=== PATIENT | male | born 1955 | race Two or more races ===

== ENCOUNTER 2016-07-06 17:12 | Inpatient (IN) | payer MEDICARE ==
--- NOTE | 2016-07-06 17:45 | ED Physician Chart ---
Chief Complaint/HPI - Patient Information Date Seen:: 07/06/16 Time Seen:: 17:15 Chief Complaint:: bilat. lower extremity edema and swelling, suspect cellulitis History of Present Illness:: Pt. has apparently had bilat lower extremity edema for some months. , pt. was started on Cephalexin for cellulitis of edematous feet. Dr. Warner/ Darius sent pt. here, apparently for admit. Allergies:: Allergies Allergy/AdvReac Type Severity Reaction Status Date / Time No Known Allergies Allergy Verified 03/27/16 23:40 Vitals:: 124.64, 86, 97%, 17, 98.5 Review of Systems - Review of Systems General/Constitutional: No fever, No weight loss Skin: Skin lesions Head: No headache ENT: No earache, No sore throat Neck: No neck pain Cardio Vascular: No chest pain, No palpitations, No orthopnea Pulmonary: No SOB, No cough GI: No nausea, No vomiting, No diarrhea G/U: No dysuria Psychiatric: Prior psych history Hematopoietic: No bruising Allergic/Immuno: No urticaria Neurological: No syncope, No focal symptoms Past Medical History - Past Medical History Past Medical History: HTN, DM, CHF, Other (Psych, ? bipolar) Family History: Diabetes Melitus, HTN Medication: Reviewed (Lisinopril, lasix, oxybutynin, dyazide, venlafaxine, famotidine, gabapentin, metformin, MOM, insulin, cephalexin, Ibuprofin, Ibuprofen, Bisacodyl ) Family Medical History - Family Member Mother History Unknown: Yes Ethnicity: Living Status: Hx Family Cancer: No Hx Family Coronary Artery Disease: No Hx Family Congestive Heart Failure: No Hx Family Hypertension: Yes Hx Family Stroke: No Hx Family Diabetes: Yes Hx Family Seizures: No Hx Family Dementia: No Hx Family AIDS: No Hx Family HIV: No Hx Family COPD: No Hx Family Hepatitis: No Hx Family Psychiatric Problems: No Hx Family Tuberculosis: No not known History Unknown: Yes Physical Exam - Physical Examination General/Constitutional: Awake, Well-developed, well-nourished, Alert, No distress, GCS 15, Non-toxic appearing Head: Atraumatic Eyes: Lids, conjuctiva normal, PERRL, EOMI Skin: Nl inspection ENMT: External ears, nose nl Neck: Nontender, Full ROM w/o pain Respiratory: Nl effort/Exclusion, Clear to Auscultation Cardio Vascular: RRR, No murmur, gallop, rubs GI: No tenderness/rebounding/guarding Other Extremities comments:: Bipedal edema 4+. Pt. has swelling and weeping between L toes 1 & 2 and on dorsum of foot over metatarsal head. Similar distribution of weeping on R. Pt. c/o "itching" on L and "burining" on R. No open diabetic ulcer visualized. Neuro/Psych: Alert/oriented, Normal motor strength Labs/Radiology/EKG Results - Lab Results Results: EKG: NSR 85 with nl. axis. No acute change. Trop elevated to 0.23 CPK is 334 and MB is 12.0 BUN/creat = 67/2.7 Na = 128. PT is 9.2 (low) and PTT 24.7 (low) WBC = 9.0, H/H = 10.4/30.0 ED Septic Shock - . Is Septic Shock (SBP<90, OR Lactate>4 mmol\\L) present?: No Reassessment (Disposition) - Reassessment Reassessment Condition:: Unchanged - Diagnosis Diagnosis:: Dx: 1. Chronic bipedal edema with diabetic foot infection 2. elevated troponin 3. Hyponatremia 4. Renal Insufficiency - Patient Disposition Discharge/Transfer:: Acute Care w/in this hosp Accepting Physician:: Dr. Richardson for Dr. Mccoy Time Called:: 1914 Time Responded:: 19:43 Discussion with Medical Provider:: Discussed with Dr. Mccoy. He is aware of card. markers, BUN/creat. and Na. He is giving orders. Admitted to:: Med/Surg Condition at Disposition:: Stable ED Discharge Plan - Patient Disposition Admit/Discharge/Transfer: Acute Care w/in this hosp Condition at Disposition: Stable
[2016-07-06 18:14] LABS: % BASOPHILS 0.4 % (0.0-2.0); % EOSINOPHILS 2.9 % (0.0-5.0); % LYMPHOCYTES 17.8 % (20.0-50.0); % MONOCYTES 9.1 % (2.0-10.0); % NEUTROPHILS 69.8 % (40.0-80.0); HEMOGLOBIN 10.4 gm/dL (13.2-17.3); MEAN CELL VOLUME 91.3 fl (80-99); MEAN CORPUSCULAR HEMOGLOBIN 31.5 pg (26.0-30.0); MEAN CORPUSCULAR HGB CONC 34.5 pg (28.0-36.0); MEAN PLATELET VOLUME 7.4 fl; NEUTROPHILE ABSOLUTE 6.3 Th/cmm (1.8-8.0); PLATELET COUNT 263 Th/cmm (150-400); RED BLOOD COUNT 3.28 Mil/cmm (4.30-5.70); RED CELL DISTRIBUTION WIDTH 13.3 % (11.5-20.0)
[2016-07-06 18:34] LABS: ALB/GLOB RATIO 0.9 (1.0-1.8); ALKALINE PHOSPHATASE 76 U/L (34-104); ANION GAP 13.8 (7.0-16.0); BILIRUBIN,TOTAL 0.3 mg/dL (0.3-1.0); BUN - UREA NITROGEN 67 mg/dL (7-25); BUN/CREATININE RATIO 24.8; CALCIUM SERUM 9.8 mg/dL (8.6-10.3); CHLORIDE 95 mEq/L (98-107); CREATININE - SERUM 2.7 mg/dL (0.7-1.3); GLUCOSE 96 mg/dL (70-105); INR 0.93 (0.5-1.4); POTASSIUM SERUM 4.8 mEq/L (3.5-5.1); PROTHROMBIN TIME (TEST) 9.2 SECONDS (9.5-11.5); SGOT 28 U/L (13-39); SGPT/ALT 23 U/L (7-52); SODIUM SERUM 128 mEq/L (136-145)
[2016-07-06 18:49] LABS: BNP 70.5 pg/mL (5.0-100.0)
[2016-07-06] MEDS ORDERED: Sodium Chloride 0.9% 500 ML IV ONE (19:42)
[2016-07-06] MEDS ORDERED: Sodium Chloride 0.9% 1,000 ML IV ONE (19:43)
[2016-07-06] MEDS ORDERED: Magnesium Hydroxide (MOM) 30 mL UDC PO PRN (20:00)
[2016-07-06] MEDS ORDERED: Maalox 30 mL Cup PO PRN (20:00)
[2016-07-06 21:12] LABS: URINE BILIRUBIN NEGATIVE (NEGATIVE); URINE BLOOD TRACE (NEGATIVE); URINE COLOR YELLOW; URINE GLUCOSE (UA) NEGATIVE (NEGATIVE); URINE KETONE NEGATIVE (NEGATIVE); URINE PH 5.5; URINE PROTEIN NEGATIVE (NEGATIVE); URINE UROBILINOGEN 0.2 E.U./dL (0.2 - 1.0)
[2016-07-06 21:13] LABS: URINE BACTERIA NONE SEEN /hpf (NONE SEEN); URINE EPITHELIAL CELLS NONE SEEN /lpf (FEW); URINE RBC 0-2 /hpf (0-5); URINE WBC NONE SEEN /hpf (0-5)
[2016-07-06 23:01] VITALS: BP 139/73
[2016-07-07] MEDS ORDERED: Piperacillin Sodium/Tazobact 2.25 gm Vial IV ONE (00:33)
[2016-07-07 07:16] LABS: % BASOPHILS 0.1 % (0.0-2.0); % EOSINOPHILS 3.7 % (0.0-5.0); % LYMPHOCYTES 23.5 % (20.0-50.0); % MONOCYTES 8.9 % (2.0-10.0); % NEUTROPHILS 63.8 % (40.0-80.0); HEMATOCRIT 26.9 % (39.0-49.0); HEMOGLOBIN 9.4 gm/dL (13.2-17.3); MEAN CELL VOLUME 89.9 fl (80-99); MEAN CORPUSCULAR HEMOGLOBIN 31.4 pg (26.0-30.0); MEAN CORPUSCULAR HGB CONC 34.9 pg (28.0-36.0); MEAN PLATELET VOLUME 7.8 fl; NEUTROPHILE ABSOLUTE 4.5 Th/cmm (1.8-8.0); PLATELET COUNT 264 Th/cmm (150-400); RED BLOOD COUNT 2.99 Mil/cmm (4.30-5.70); RED CELL DISTRIBUTION WIDTH 13.2 % (11.5-20.0)
[2016-07-07 07:29] LABS: WHITE BLOOD COUNT 7.1 Th/cmm (4.8-10.8)
[2016-07-07 07:43] LABS: ALB/GLOB RATIO 0.8 (1.0-1.8); ANION GAP 10.5 (7.0-16.0); BILIRUBIN,TOTAL 0.4 mg/dL (0.3-1.0); BUN/CREATININE RATIO 28.2; CALCIUM SERUM 9.1 mg/dL (8.6-10.3); CARBON DIOXIDE 25.3 mEq/L (21.0-31.0); CREATININE - SERUM 2.2 mg/dL (0.7-1.3); MAGNESIUM 2.5 mg/dL (1.9-2.7); PHOSPHOROUS 3.5 mg/dL (2.5-5.0); POTASSIUM SERUM 4.8 mEq/L (3.5-5.1)
[2016-07-07] MEDS: Oxybutynin Chloride 5 mg ER Tab PO SCH (08:57)
[2016-07-07] MEDS ORDERED: VENLAFAXINE HCL 37.5 MG PO SCH (09:00)
--- NOTE | 2016-07-07 09:58 | Diagnostic Imaging Report ---
Portable chest x-ray History: Cough Allowing for portable technique the heart size is normal. No focal pulmonary parenchymal processes. No hilar or mediastinal abnormalities. Impression: No acute abnormalities.
[2016-07-07] MEDS ORDERED: Morphine Sulfate 4 mg/mL 1mL Syr IVP PRN (10:01)
--- NOTE | 2016-07-07 12:32 | History & Physical ---
CHIEF COMPLAINT: The patient came in because of worsening erythema of his legs. HISTORY OF PRESENT ILLNESS: This is a 61-year-old male with past medical history of bilateral lymphedema who came in because of worsening erythema of bilateral lower extremities. The patient has a history of chronic lymphedema and recurring cellulitis. He had been treated in the past with appropriate antibiotics. A few hours prior to admission, staff noted worsening erythema of his lower extremities. He also experienced some discomfort. A few hours prior to admission, his erythema had deteriorated. He was then brought to the Emergency Room. Her white count was 9 with a temperature of 97.2 degrees. He was initiated on Zosyn after cultures were obtained. He had no fever, no chills. PAST MEDICAL HISTORY: 1. Chronic lymphedema. 2. Type 2 diabetes mellitus. 3. Essential hypertension. 4. Depression. 5. Chronic pain syndrome. 6. Diabetic neuropathy. 7. Recurrent lower extremity cellulitis. 8. Chronic kidney disease. PAST SURGICAL HISTORY: Status post implantation of morphine pump in right lower quadrant. CURRENT MEDICATIONS: He is currently on acetaminophen, bisacodyl, famotidine, Neurontin, detemir, lisinopril, Ativan, oxybutynin, Zosyn, temazepam, vanco. ALLERGIES: No known drug allergies. SOCIAL HISTORY: No history of alcohol or tobacco use. He currently resides at [facility]. FAMILY HISTORY: Noncontributory to present illness. REVIEW OF SYSTEMS: CONSTITUTIONAL: Appetite had been fair, no fever, no chills, minimal weakness. HEENT: No headaches, no dizziness. Wears glasses due to poor vision. His acuity has ____ within acceptable limits. CARDIORESPIRATORY: He has a history of hypertension. At the present time, no chest pain, palpitations, diaphoresis, cough or shortness of breath. GASTROINTESTINAL: No nausea and vomiting, abdominal pain or cramping, hematemesis, melena, hematochezia, no diarrhea. ENDOCRINE: He has a history of morbid obesity, diabetes, no thyroid abnormalities. MUSCULOSKELETAL: Multiple joint arthralgias. GENITOURINARY: History of chronic kidney disease. No dysuria or hematuria. HEMATOLOGIC: History of anemia of chronic kidney disease. NEUROPSYCH: No syncopal episode nor seizure activity. He has diabetic neuropathy and chronic pain syndrome. PHYSICAL EXAMINATION: GENERAL: The patient is obese, mild distress due to discomfort of bilateral lower extremities. VITAL SIGNS: His temperature is 98.5 degrees, pulse 81, blood pressure 96/60. SKIN: Poor turgor, warm. No rash. No jaundice appreciated. HEENT: Head normocephalic, atraumatic. Eyes: Extraocular muscles intact. Pupils equal, round, reactive to light and accommodates. Anicteric sclerae. Pale conjunctivae. Nose, midline nasal septum. Mouth: Dry mucosa with adequate dentition. NECK: Supple, no adenopathy, no JVD, no thyromegaly. CHEST AND CARDIOVASCULAR: S1, S2. Distant heart sounds. No rub, murmur nor gallop appreciated. Point of maximal impulse is unable to assess due to size. LUNGS: Equal expansion. No use of accessory muscles. No supraclavicular retractions, decreased breath sounds, clear to auscultation without any wheeze. ABDOMEN: Obese, soft, positive for bowel sounds. No bruits either diastolic or systolic. RECTAL: Lax sphincter tone. GENITOURINARY: Normal appearing male genitalia. MUSCULOSKELETAL: No effusion was present in his joints with limited range of motion. EXTREMITIES: He has ____ +3 bipedal nonpitting edema, with the blisters, possibly nodules on his bilateral lower extremities, extensive erythema superior to bilateral knees, extending distally to both feet. Bilateral lower extremities were warm to touch and tenderness on the palpation. NEUROLOGIC: The patient is awake, verbal, motor is 5/5. Cranial nerves 2-12 intact. Sensory intact. LABORATORY DATA: Revealed sodium 131, potassium 4.8, chloride 100, bicarb 22, BUN 62, creatinine 2.2, glucose is 122. White count 7.1, hemoglobin 9.4, hematocrit 26.1, polys 63.8%, platelets 264, BNP is 70, CK-MB is 12. Troponin 0.23, albumin 3.6, calcium ____. IMPRESSION: 1. Recurrent bilateral lower extremity cellulitis. 2. Chronic lymphedema. 3. Type 2 diabetes mellitus. 4. Essential hypertension. 5. Depression. 6. Chronic pain syndrome, status post morphine pump. 7. Diabetic neuropathy. 8. Acute kidney injury on chronic kidney disease, stage III. 9. Elevated troponin secondary to kidney failure, but also consider cardiac with elevated CKMB. 10. Anemia of chronic kidney disease. PLAN: 1. Blood culture x 2. 2. Continue on Zosyn ____ and vancomycin. 3. Hold diuretics for now. 4. Discontinue metformin, add glipizide. 5. Continue analgesics. 6. Cardiology consult for possible NSTEMI. 7. Start the patient on Epogen. JOB# [id number]
[2016-07-07] MEDS: INSULIN HUMAN REGULAR 100 UNITS/ML UNIT SUBQ SCH ×3 (12:37→22:16)
[2016-07-07] MEDS: Venlafaxine HCl ER 37.5 mg Tab PO SCH (15:08)
[2016-07-07] MEDS: Insulin Detemir 100 units/mL 10mL Vial SUBQ SCH (16:54)
[2016-07-08 07:30] LABS: ANION GAP 11.1 (7.0-16.0); BUN/CREATININE RATIO 31.3; CALCIUM SERUM 8.9 mg/dL (8.6-10.3); CARBON DIOXIDE 24.9 mEq/L (21.0-31.0); CREATININE - SERUM 1.6 mg/dL (0.7-1.3)
[2016-07-08] MEDS: Venlafaxine HCl ER 37.5 mg Tab PO SCH (08:36)
[2016-07-08] MEDS: INSULIN HUMAN REGULAR 100 UNITS/ML UNIT SUBQ SCH ×3 (08:37→17:06)
[2016-07-08] MEDS: Oxybutynin Chloride 5 mg ER Tab PO SCH (08:38)
[2016-07-08] MEDS: Insulin Detemir 100 units/mL 10mL Vial SUBQ SCH (17:06)
[2016-07-09] MEDS: INSULIN HUMAN REGULAR 100 UNITS/ML UNIT SUBQ SCH ×3 (01:58→21:57)
--- NOTE | 2016-07-09 02:16 | Consultation ---
The patient of Dr. Hernandez. HISTORY AND PHYSICAL: This is a 61-year-old male patient who has chronic bilateral lymphedema with cellulitis. The patient came to the Emergency Room because of increasing redness. During the hospital stay, the patient was found to have slightly elevated troponin level and hence cardiology consult was requested. PAST MEDICAL HISTORY: Bilateral cellulitis, bilateral lymphedema, diabetes mellitus type 2, diabetic neuropathy, diabetic CKD stage 3, hypertension, iron-deficiency anemia, narcotic dependence with morphine pump and major depression. FAMILY HISTORY: Unremarkable. SOCIAL HISTORY: No history of smoking, alcohol abuse. ALLERGIES: No known allergies. PHYSICAL EXAMINATION: VITAL SIGNS: Blood pressure 150/80, pulse 70 and respirations 20. HEAD: Normocephalic. No lumps or bumps. EYES: Pupils equal, reactive to light. Fundi show AV nicking, sclerae white, conjunctivae pink. NECK: Carotid 2+. Normal upstroke. JVD flat. Thyroid not palpable. Lymph nodes not palpable. CHEST: Shows increased AP diameter. No kyphosis or scoliosis. LUNGS: Bilateral ____ breath sounds. HEART: PMI fifth intercostal space with [id number] line. S1 and S2. No S3 or S4. Systolic murmur, grade 2/6, lower left sternal border ____ radiation. ABDOMEN: Soft. Liver and spleen not palpable. No organomegaly. Bowel sounds are active. NEUROLOGIC: Peripheral neuropathy. EXTREMITIES: Peripheral pulses difficult to palpate, bilateral lymphedema with cellulitis. CLINICAL IMPRESSION: 1. Troponin level slightly elevated secondary to CKD stage III, unlikely coronary artery disease. 2. Bilateral leg cellulitis, bilateral lymphedema, diabetes mellitus type 2, diabetic peripheral neuropathy, diabetic CKD stage 3, hypertension, iron-deficiency anemia secondary to CKD stage III, narcotic dependence with morphine pump and major depression. PLAN: To continue present care, IV antibiotics. Monitor the patient for any arrhythmias. JOB# [id number]
[2016-07-09 07:47] LABS: BUN - UREA NITROGEN 31 mg/dL (7-25); BUN/CREATININE RATIO 22.1; CALCIUM SERUM 8.8 mg/dL (8.6-10.3); CARBON DIOXIDE 26.8 mEq/L (21.0-31.0); CHLORIDE 104 mEq/L (98-107); CREATININE - SERUM 1.4 mg/dL (0.7-1.3); GLUCOSE 119 mg/dL (70-105); POTASSIUM SERUM 3.8 mEq/L (3.5-5.1); SODIUM SERUM 136 mEq/L (136-145)
[2016-07-09] MEDS ORDERED: Epoetin Alfa 20000 Units/mL Vial SUBQ SCH (10:25)
--- NOTE | 2016-07-09 23:40 | Admit Criteria Form ---
Admit Criteria Forms - Admit Criteria Diagnosis: CELLULITIS Clinical Indications for Admission to Inpatient Care (Place 'X' for any and all applicable criteria): Admission is indicated for ANY ONE of the following(1)(2)(3)(4)(5): [ ]I. Limb-threatening infection [ ]II. High-risk comorbid condition as indicated by ANY ONE of the following: [ ]a) Uncontrolled diabetes (eg, HbA1c greater than 10% (0.1)) [ ]b) Cirrhosis [ ]c) Neutropenia [ ]d) Asplenia [ ]e) Immunosuppression [ ]f) Symptomatic heart failure [ ]III. Failure of outpatient therapy as indicated by ALL of the following: [ ]a) Progression or no improvement after adequate trial (minimum of 48 hours, with longer period for stable lower extremity infection) [ ]b) Adequate antibiotic regimen as indicated by use of ANY ONE of the following: [ ]i) First-generation cephalosporin (e.g., cephalexin) [ ]ii) Antistaphylococcal penicillin (e.g., dicloxacillin) [ ]iii) Penicillin-allergic patient regimen (clindamycin, extended-spectrum fluoroquinolone, or doxycycline) [ ]iv) Resistant organism (eg, methicillin-resistant Staphylococcus aureus) regimen (6) [ ]c) Outpatient intravenous therapy regimen is not appropriate due to ANY ONE of the following. (7)(8)(9)(10): [ ]i) It was tried and was not successful (eg, progression of infection). [ ]ii) It is not available or cannot be arranged in a clinically appropriate time frame (e.g., the next day). [ ]iii) Clinical presentation (eg, acuity of infection, rapidity of progression, confirmed or suspected bacteremia) is judged to require ALL of the following: [ ]1) Immediate initiation of intravenous therapy ( eg, cannot wait for next day) [ ]2) Intensity of patient monitoring and observation (eg, vital sign measurement, checks for infection progression) that cannot be provided at other than inpatient level of care [ ]IV. Mental status changes [ ]V. Bacteremia [ ]. Hemodynamic instability [ ]VII. Suspected necrotizing soft tissue infection (e.g., gas in tissue)(11)( 12) [ ]VIII. Orbital infection (13)(14) [ ]IX. Associated surgical procedure (e.g., abscess drainage, debridement) not amenable to outpatient, emergency department, or observation care [ ]X. Cutaneous gangrene [ ]XI. High fever (temperature greater than 39.5 degrees C (103.1 degrees F) (oral)) not responsive to outpatient, emergency department, or observation care therapy [X ]XIII. Inpatient admission required rather than observation care (Also use Cellulitis: Observation Care as appropriate) because of ANY ONE of the following : [ ]a) Periorbital or perineal infection that is severe or worsening [ ]b) Severe pain requiring acute inpatient management [ ]c) IV fluid to replace significant ongoing (e.g., for over 24 hours) losses (greater than 3L/m2 per day) [ ]d) Compartment syndrome monitoring (17) [ ]e) Strict or protective (eg, laminar flow) isolation [ ]f) Urgent debridement or skin grafting [ ]g) Bone or joint debridement [ ]h) Immediate inpatient surgery [ X]i) Other condition, treatment or monitoring requiring inpatient admission Extended stay beyond goal length of stay may be needed for (1)(18): [ ]a) Necrotizing soft tissue infection or fasciitis [ ]b) Gram-negative infection [ ]c) Methicillin-resistant Staphylococcal aureus (MRSA) infection [ ]d) Peripheral venous insufficiency with cellulitis [ ]e) Extensive edema [ ]f) Sepsis or continued Hemodynamic instability [ ]g) Continued high fever or mental status change [ ]h) Bacteremia [ ]i) Active serious comorbid conditions ( eg, heart failure, renal insufficiency) The original [facility] [employer] content created by [facility] [email or web address] has been revised. The portions of the content which have been revised are identified through the use of italic text or in bold, and [facility] has neither reviewed nor approved the modified material. All other unmodified content is copyright [facility] Please see references footnoted in the original [email or web address] edition 2016 Admit Criteria Met?: Yes
[2016-07-10 05:34] LABS: % BASOPHILS 0.8 % (0.0-2.0); % EOSINOPHILS 7.9 % (0.0-5.0); % MONOCYTES 9.3 % (2.0-10.0); HEMATOCRIT 26.2 % (39.0-49.0); HEMOGLOBIN 9.1 gm/dL (13.2-17.3); MEAN CELL VOLUME 89.4 fl (80-99); MEAN CORPUSCULAR HEMOGLOBIN 31.2 pg (26.0-30.0); MEAN CORPUSCULAR HGB CONC 34.9 pg (28.0-36.0); MEAN PLATELET VOLUME 7.2 fl; NEUTROPHILE ABSOLUTE 2.1 Th/cmm (1.8-8.0); PLATELET COUNT 265 Th/cmm (150-400); RED BLOOD COUNT 2.93 Mil/cmm (4.30-5.70); RED CELL DISTRIBUTION WIDTH 13.1 % (11.5-20.0)
[2016-07-10 05:37] LABS: WHITE BLOOD COUNT 5.1 Th/cmm (4.8-10.8)
[2016-07-10 05:50] LABS: ALB/GLOB RATIO 0.9 (1.0-1.8); ALKALINE PHOSPHATASE 92 U/L (34-104); ANION GAP 5.4 (7.0-16.0); BILIRUBIN,TOTAL 0.2 mg/dL (0.3-1.0); BUN - UREA NITROGEN 20 mg/dL (7-25); BUN/CREATININE RATIO 18.2; CALCIUM SERUM 8.6 mg/dL (8.6-10.3); CARBON DIOXIDE 25.4 mEq/L (21.0-31.0); CHLORIDE 109 mEq/L (98-107); CREATININE - SERUM 1.1 mg/dL (0.7-1.3); GLUCOSE 113 mg/dL (70-105); POTASSIUM SERUM 3.8 mEq/L (3.5-5.1); SGOT 40 U/L (13-39); SGPT/ALT 29 U/L (7-52); SODIUM SERUM 136 mEq/L (136-145)
[2016-07-10] MEDS: INSULIN HUMAN REGULAR 100 UNITS/ML UNIT SUBQ SCH ×3 (06:34→16:29)
[2016-07-10] MEDS: Venlafaxine HCl ER 37.5 mg Tab PO SCH (08:51)
[2016-07-10] MEDS: Oxybutynin Chloride 5 mg ER Tab PO SCH (08:51)
[2016-07-10] MEDS: Insulin Detemir 100 units/mL 10mL Vial SUBQ SCH (16:39)
[2016-07-11 07:45] LABS: % BASOPHILS 0.4 % (0.0-2.0); % EOSINOPHILS 7.6 % (0.0-5.0); % LYMPHOCYTES 31.9 % (20.0-50.0); % MONOCYTES 11.1 % (2.0-10.0); HEMATOCRIT 25.1 % (39.0-49.0); HEMOGLOBIN 8.6 gm/dL (13.2-17.3); MEAN CELL VOLUME 90.6 fl (80-99); MEAN CORPUSCULAR HEMOGLOBIN 31.1 pg (26.0-30.0); MEAN CORPUSCULAR HGB CONC 34.3 pg (28.0-36.0); MEAN PLATELET VOLUME 7.6 fl; NEUTROPHILE ABSOLUTE 2.9 Th/cmm (1.8-8.0); PLATELET COUNT 284 Th/cmm (150-400); RED BLOOD COUNT 2.77 Mil/cmm (4.30-5.70); RED CELL DISTRIBUTION WIDTH 13.3 % (11.5-20.0)
[2016-07-11] MEDS ORDERED: Maalox 30 mL Cup PO PRN (09:56)
[2016-07-11] MEDS: Oxybutynin Chloride 5 mg ER Tab PO SCH (10:07)
[2016-07-11] MEDS: Venlafaxine HCl ER 37.5 mg Tab PO SCH (10:07)
[2016-07-11] MEDS: INSULIN HUMAN REGULAR 100 UNITS/ML UNIT SUBQ SCH (11:31)
[2016-07-11] MEDS ORDERED: INSULIN ASPART SLIDING SCALE 100 UNITS/ML UNIT SUBQ SCH (16:30)
--- NOTE | 2016-07-18 10:24 | Discharge Summary ---
ADMITTING DIAGNOSES: Recurrent bilateral lower extremity cellulitis, acute on chronic lymphedema, acute on chronic kidney insufficiency, and slight elevation of troponins. SECONDARY DIAGNOSES: Chronic lymphedema, chronic lower extremity dermatitis, chronic lower extremity edema, type 2 diabetes, essential hypertension, chronic pain syndrome, status post morphine pump placement, history of depression, diabetic neuropathy, and anemia of chronic disease. CONSULTANTS: Dr. Niko Domingo, Cardiology. DISCHARGE DIAGNOSES: Recurrent bilateral lower extremity cellulitis, acute on chronic lymphedema, acute on chronic kidney insufficiency, and slight elevation of troponins. PROCEDURES: There were no major procedures done on this admission. DISCHARGE MEDICATIONS: Please refer to AUG. IV antibiotics included Zosyn and vancomycin for 10 more days. BRIEF HOSPITAL COURSE: This is a 61-year-old gentleman, resident of [facility] with multiple medical problems including chronic pain syndrome secondary to spinal cord injury, essential hypertension, diabetic neuropathy, type 2 diabetes, history of chronic lymphedema, history of chronic venous stasis and recurrent lower extremity cellulitis, who presented to the ER with erythema and worsening swelling for the last few days. On admission, his sodium was noted to be 131, creatinine 2.2 and a BUN of 62. BNP was 70 and his troponin was slightly elevated at 0.23. He was admitted to telemetry where his troponins improved, and among other things, he was placed on IV fluids, IV antibiotics, and daily wound care. His lower extremity edema and redness also noticeable improved by hospital day #3. He also received brief sessions with PT and was kept on his home medications except Lasix given his renal insufficiency. His BUN and creatinine and his sodium level did improve and by 07/08/2016, his BUN was 15, creatinine was 1.6, and his sodium level was 136. CONDITION ON DISCHARGE: Stable. DISPOSITION: The patient was transferred to [facility] facility for further management and care as well as PT. JOB# [id number]
== END 2016-07-11 15:10 | DRG 603 ==
LOC: ER 17:12 → MSI 20:25
PROVIDERS: ADMIT Internal Medicine; ATTEND Internal Medicine
DX: L03.116 Cellulitis of left lower limb (principal); E11.22 Type 2 diabetes mellitus with diabetic chronic kidney disease; I13.0 Hypertensive heart and chronic kidney disease with heart failure and stage 1 through stage 4 chronic kidney disease, or unspecified chronic kidney disease; N17.9 Acute kidney failure, unspecified; E11.40 Type 2 diabetes mellitus with diabetic neuropathy, unspecified; N18.3 Chronic kidney disease, stage 3 (moderate); F11.20 Opioid dependence, uncomplicated; E87.1 Hypo-osmolality and hyponatremia; L03.115 Cellulitis of right lower limb; F32.9 Major depressive disorder, single episode, unspecified; G89.4 Chronic pain syndrome; D63.1 Anemia in chronic kidney disease; D50.9 Iron deficiency anemia, unspecified; Z83.3 Family history of diabetes mellitus; Z82.49 Family history of ischemic heart disease and other diseases of the circulatory system; Z79.4 Long term (current) use of insulin
CPT/HCPCS: 36415-UA; 71010-TC; 80048-TC; 80053-TC; 81001-TC; 82550-TC; 82553; 82948-90; 83036-90; 83735-TC; 83880-TC; 84100-TC; 84443-TC; 84484-TC; 85025-TC; 85610-TC; 85730-TC; 93005; 97530; J0885; J1644; J1815; J2543; J3370; J7030; X3904; Z7610

== ENCOUNTER 2016-11-29 18:16 | Emergency (ER) | payer MEDICARE, MEDICAID ==
--- NOTE | 2016-11-29 18:59 | ED Physician Chart ---
Chief Complaint/HPI - Patient Information Date Seen:: 11/29/16 Time Seen:: 18:50 Chief Complaint:: lower leg swelling History of Present Illness:: Patient said lower leg swelling for the last 3-1/2 months. Legs have also been leaking fluid. No chills or fever. Unable to walk. Has been using a wheelchair for the last 3 years. Allergies:: Allergies Allergy/AdvReac Type Severity Reaction Status Date / Time No Known Allergies Allergy Verified 11/29/16 18:31 Vitals:: Vital Signs - 8 hr 11/29/16 18:25 Temp 97.6 F HR 79 RR 16 BP 132/59 O2 Sat % 97 Historian:: Patient Review:: Nurse's Note Reviewed Review of Systems - Review of Systems General/Constitutional: No fever, No chills Skin: Skin lesions Head: No headache Eyes: No loss of vision ENT: No earache Neck: No neck pain Cardio Vascular: No chest pain Pulmonary: No SOB GI: No nausea, No vomiting, No diarrhea G/U: No dysuria Musculoskeletal: No bone or joint pain Endocrine: No polyuria Psychiatric: No prior psych history, No depression, No anxiety Hematopoietic: No bruising Allergic/Immuno: No urticaria Neurological: No syncope, No focal symptoms Past Medical History - Past Medical History Past Medical History: DM, Other (peripheral vascular disease ) Family History: Heart disease, Diabetes Melitus, HTN Social History: Smoker, No Alcohol, Other (smokes one half package of cigarettes per day) Surgical History: other (back surgery and morphine pump placed in RLQ abdominal wall) Psychiatricy History: None Medication: Reviewed Family Medical History - Family Member Mother History Unknown: Yes Ethnicity: Living Status: Hx Family Cancer: No Hx Family Coronary Artery Disease: No Hx Family Congestive Heart Failure: No Hx Family Hypertension: Yes Hx Family Stroke: No Hx Family Diabetes: Yes Hx Family Seizures: No Hx Family Dementia: No Hx Family AIDS: No Hx Family HIV: No Hx Family COPD: No Hx Family Hepatitis: No Hx Family Psychiatric Problems: No Hx Family Tuberculosis: No not known History Unknown: Yes Physical Exam - Physical Examination General/Constitutional: Well-developed, well-nourished Head: Atraumatic Eyes: Lids, conjuctiva normal, PERRL Other Skin comments:: Lower extremities are swollen with brawny discoloration and cobblestone appearance ENMT: External ears, nose nl, TM canals nl, Nasal exam nl Other ENMT comments:: Dentures Neck: No nuchal rigidity Respiratory: Nl effort/Exclusion, Clear to Auscultation, No Wheeze/Rhonchi/Rales Cardio Vascular: RRR, No murmur, gallop, rubs GI: No tenderness/rebounding/guarding, No organomegaly, No hernia, Normal BS's, Nondistended : No CVA tenderness Other Extremities comments:: See above under skin Neuro/Psych: Alert/oriented, No focal deficits Labs/Radiology/EKG Results - Lab Results Results: Laboratory Results - last 24 hr 11/29/16 11/29/16 19:06 19:06 WBC 7.1 RBC 4.10 L Hgb 11.1 L D Hct 33.1 L D MCV 80.8 MCH 26.9 MCHC Differential 33.4 RDW 22.2 H Plt Count 256 MPV 7.2 Neutrophils % 54.2 Lymphocytes % 32.3 Monocytes % 8.2 Eosinophils % 4.5 Basophils % 0.8 Sodium 131 L Potassium 5.3 H Chloride 104 Carbon Dioxide 21.3 Anion Gap 11.0 BUN 39 H Creatinine 1.5 H Est GFR ( Amer) > 60.0 Est GFR (Non-Af Amer) 50.4 BUN/Creatinine Ratio 26.0 Glucose 105 Calcium 9.9 Total Bilirubin 0.3 AST 18 ALT 12 Alkaline Phosphatase 81 Total Protein 8.2 Albumin 3.8 L Globulin 4.4 Albumin/Globulin Ratio 0.9 L Assessment - Assessment General Assessment: Talk to Dr. Mccoy. who is familiar with the patient and felt he could return to his extended care facility. ED Septic Shock - . Is Septic Shock (SBP<90, OR Lactate>4 mmol\L) present?: No - <6hrs of presentation: Vital Signs: Vital Signs - 8 hr 11/29/16 18:25 Temp 97.6 F HR 79 RR 16 BP 132/59 O2 Sat % 97 Reassessment (Disposition) - Diagnosis Diagnosis:: Stasis dermatitis; lymphedema - Aftercare/Follow up Instructions Aftercare/Follow-Up Instructions:: Refer to Discharge Instructions - Patient Disposition Discharge/Transfer:: [facility] - SNF Spoke to:: Paulo Mccoy Condition at Disposition:: Stable, Unchanged
[2016-11-29 19:15] LABS: % BASOPHILS 0.8 % (0.0-2.0); % EOSINOPHILS 4.5 % (0.0-5.0); % LYMPHOCYTES 32.3 % (20.0-50.0); % MONOCYTES 8.2 % (2.0-10.0); % NEUTROPHILS 54.2 % (40.0-80.0); MEAN CELL VOLUME 80.8 fl (80-99); MEAN CORPUSCULAR HEMOGLOBIN 26.9 pg (26.0-30.0); MEAN CORPUSCULAR HGB CONC 33.4 pg (28.0-36.0); MEAN PLATELET VOLUME 7.2 fl; NEUTROPHILE ABSOLUTE 3.8 Th/cmm (1.8-8.0); PLATELET COUNT 256 Th/cmm (150-400); RED CELL DISTRIBUTION WIDTH 22.2 % (11.5-20.0); WHITE BLOOD COUNT 7.1 Th/cmm (4.8-10.8)
[2016-11-29 19:17] LABS: HEMATOCRIT 33.1 % (39.0-49.0); HEMOGLOBIN 11.1 gm/dL (13.2-17.3)
[2016-11-29 19:31] LABS: ALB/GLOB RATIO 0.9 (1.0-1.8); ALKALINE PHOSPHATASE 81 U/L (34-104); BILIRUBIN,TOTAL 0.3 mg/dL (0.3-1.0); BUN - UREA NITROGEN 39 mg/dL (7-25); CALCIUM SERUM 9.9 mg/dL (8.6-10.3); CARBON DIOXIDE 21.3 mEq/L (21.0-31.0); CHLORIDE 104 mEq/L (98-107); CREATININE - SERUM 1.5 mg/dL (0.7-1.3); GLUCOSE 105 mg/dL (70-105); POTASSIUM SERUM 5.3 mEq/L (3.5-5.1); SGOT 18 U/L (13-39); SGPT/ALT 12 U/L (7-52); SODIUM SERUM 131 mEq/L (136-145)
== END 2016-11-29 22:05 | disposition home or self-care (01) ==
LOC: ER 18:16
DX: I87.2 Venous insufficiency (chronic) (peripheral) (principal); E11.9 Type 2 diabetes mellitus without complications; I89.0 Lymphedema, not elsewhere classified; F17.210 Nicotine dependence, cigarettes, uncomplicated
CPT/HCPCS: 36415-UA; 80053-TC; 85025-TC; Z7502

== ENCOUNTER 2017-05-26 20:41 | Emergency (ER) | payer MEDICARE, MEDICAID ==
--- NOTE | 2017-05-26 21:11 | ED Physician Chart ---
ED Chief Complaint/HPI - Patient Information Date Seen:: 05/26/17 Time Seen:: 20:42 Chief Complaint:: Aggressive behavior. History of Present Illness:: Brought in by ambulance from nursing facility because pt was noticed to exhibit aggressive behavior. Pt now appears to be calm and comfortable. Pt feels well without subjective complaint. Pt denies any bodily pain or discomfort. Allergies:: Allergies Allergy/AdvReac Type Severity Reaction Status Date / Time No Known Allergies Allergy Verified 05/26/17 21:05 Vitals:: see Nurse Note. Historian:: Patient, Medical Records Family MD/PCP:: Dr. Esparza/Dr. Yeung. LMP:: N/A Review:: Nurse's Note Reviewed, Transfer documents Reviewed ED Review of Systems - Review of Systems General/Constitutional: No fever, No weight loss, No weakness, No loss of appetite, Other (Chronic bilateral LE lymphedema.) Skin: No rash, No bruising Head: No headache, No light-headedness Eyes: No loss of vision, No pain, No diplopia ENT: No earache, No nasal drainage, No sore throat Neck: No neck pain, No swelling, No thyromegaly, No stiffness, No mass noted Cardio Vascular: No chest pain, No palpitations Pulmonary: No SOB, No cough, No wheezing GI: No nausea, No vomiting, No diarrhea, No pain G/U: No dysuria, No frequency, No hematuria Musculoskeletal: No bone or joint pain, No back pain, No muscle pain Endocrine: No polyuria, No polydipsia Psychiatric: Prior psych history, No depression, Anxiety, No suicidal ideation, No homicidal ideation, No auditory hallucination, No visual hallucination Hematopoietic: No bruising, No lymphadenopathy Allergic/Immuno: No urticaria, No angioedema Neurological: No syncope, No focal symptoms, No weakness, No paresthesia, No headache, No dizziness, No confusion ED Past Medical History - Past Medical History Past Medical History: HTN, DM, CHF, Asthma/COPD, Other (chronic anemia. Chronic pain syndrome, s/p morphine pump placement in R abdomen '04) Family History: Diabetes Melitus (parents. MGM, PGM.), HTN (mother.) Social History: Smoker (3 cigarets/day. Pt has been informed about health risks associated with chronic tobacco use and has been advised to quit. Pt has been encouraged to enroll in a smoking cessation program. Pt acknowledges understanding.), Alcohol (rare use), No Drug Use, Single, Care Facility Employment:: Retired. Surgical History: other (low back surgery '04) Psychiatricy History: Other (anxiety disorder.) Medication: Reviewed Family Medical History - Family Member Mother History Unknown: Yes Ethnicity: Living Status: Hx Family Cancer: No Hx Family Coronary Artery Disease: No Hx Family Congestive Heart Failure: No Hx Family Hypertension: Yes Hx Family Stroke: No Hx Family Diabetes: Yes Hx Family Seizures: No Hx Family Dementia: No Hx Family AIDS: No Hx Family HIV: No Hx Family COPD: No Hx Family Hepatitis: No Hx Family Psychiatric Problems: No Hx Family Tuberculosis: No not known History Unknown: Yes ED Physical Exam - Physical Examination General/Constitutional: Awake, Well-developed, well-nourished, Alert, No distress, Non-toxic appearing Other Gen/Cons comments:: Breathes comforably, speaks clearly, and interacts normally. Head: Atraumatic Eyes: Lids, conjuctiva normal, PERRL, EOMI Skin: No rash, Well hydrated, No lymphadenopathy ENMT: External ears, nose nl, Nasal exam nl, Oropharynx nl Neck: Nontender, Full ROM w/o pain, No JVD, No nuchal rigidity, No bruit, No mass, No stridor Respiratory: Nl effort/Exclusion, Clear to Auscultation, No Wheeze/Rhonchi/Rales Cardio Vascular: RRR, No murmur, gallop, rubs GI: No tenderness/rebounding/guarding, No organomegaly, No hernia, Normal BS's, Nondistended Other GI comments:: There is a palplable subcutaneous device noticed in R mid abdomen. Pt states that it is his morphine pump for morphine for chronic pain. : No CVA tenderness Other Extremities comments:: There are chronic changes noticed in both lower legs with dry scaling c/w lymphedema. No erythema, unusual warmth, or crepitus. Neuro/Psych: Alert/oriented (oriented x 3), DTR's symmetric, Normal sensory exam , Normal motor strength, Judgement/insight normal, Mood normal, Normal gait, No focal deficits ED Labs/Radiology/EKG Results - Lab Results Results: Laboratory Tests 05/26/17 05/26/1717 21:25 21:25 21:25 WBC 7.1 RBC 4.72 Hgb 14.8 D Hct 43.3 D MCV 91.8 MCH 31.3 H MCHC Differential 34.1 RDW 12.7 Plt Count 290 MPV 7.0 Neutrophils % 51.4 Lymphocytes % 39.4 Monocytes % 6.4 Eosinophils % 2.3 Basophils % 0.5 PT 9.0 L INR 0.88 PTT (Actin FS) 22.8 L Sodium 136 Potassium 4.4 Chloride 102 Carbon Dioxide 27.3 Anion Gap 11.1 BUN 14 Creatinine 0.7 Est GFR ( Amer) > 60.0 Est GFR (Non-Af Amer) > 60.0 BUN/Creatinine Ratio 20.0 Glucose 158 H Calcium 9.9 Total Bilirubin 0.3 AST 21 ALT 19 Alkaline Phosphatase 108 H Creatine Kinase 84 Troponin I Total Protein 8.0 Albumin 4.1 L Globulin 3.9 Albumin/Globulin Ratio 1.1 05/26/17 21:25 WBC RBC Hgb Hct MCV MCH MCHC Differential RDW Plt Count MPV Neutrophils % Lymphocytes % Monocytes % Eosinophils % Basophils % PT INR PTT (Actin FS) Sodium Potassium Chloride Carbon Dioxide Anion Gap BUN Creatinine Est GFR ( Amer) Est GFR (Non-Af Amer) BUN/Creatinine Ratio Glucose Calcium Total Bilirubin AST ALT Alkaline Phosphatase Creatine Kinase Troponin I 0.03 Total Protein Albumin Globulin Albumin/Globulin Ratio - EKG Interpretations EKG Time:: 21:32 Rate & Rhythm: NSR with VR 85 Comments:: No acute ischemic changes. ED Septic Shock - . Is Septic Shock (SBP<90, OR Lactate>4 mmol\L) present?: No ED Reassessment (Disposition) - Reassessment Reassessment:: 0010 Remaining lab results just became available. Lab and EKG findings have been reviewed with pt. Management plan has been discussed. Pt's attending physician is to be contacted. 0020 Case was discussed with Dr. Esparza with pertinent H & P, EKG, and lab findings reviewed. Pt is to be admitted to [facility] under his care. Addendum 0050 Pt is alert and oriented x 3. Pt has declined to be admitted to the hospital. Indications to be admitted to hospital, benefits and related risks, including risks for leaving AMA have been well explained to pt. Pt acknowledges understanding but still choses to leave AMA. Pt signed AMA form, witnessed by my nurse Darío. I have later discussed with Dr. Esparza on the phone at about 0045, who stated that pt may be transferred back to nursing facility. He will continue to manage pt there. Pt agrees with plan to be transported back to nursing facility where he will continue to receive further medical care per his attending physician Dr. Esparza. Reassessment Condition:: Improved - Diagnosis Diagnosis:: h/o aggressive behavior. Pt remains in normal mood and has not exhibited any aggressive behavior during his ER visit. Bacteriuria c/w UTI. Stable Diabetes mellitus. Stable HTN, stable. - Patient Disposition Discharge/Transfer:: [facility] SN[facility] Accepting Physician:: Dr. Danny Esparza Transport Method:: BLS Time:: 00:50 Condition at Disposition:: Stable ED Discharge Plan - Patient Disposition Admit/Discharge/Transfer: AGAINST MEDICAL ADVICE
[2017-05-26 21:32] LABS: % BASOPHILS 0.5 % (0.0-2.0); % EOSINOPHILS 2.3 % (0.0-5.0); % LYMPHOCYTES 39.4 % (20.0-50.0); % MONOCYTES 6.4 % (2.0-10.0); % NEUTROPHILS 51.4 % (40.0-80.0); MEAN CELL VOLUME 91.8 fl (80-99); MEAN CORPUSCULAR HEMOGLOBIN 31.3 pg (26.0-30.0); MEAN CORPUSCULAR HGB CONC 34.1 pg (28.0-36.0); NEUTROPHILE ABSOLUTE 3.6 Th/cmm (1.8-8.0); PLATELET COUNT 290 Th/cmm (150-400); RED BLOOD COUNT 4.72 Mil/cmm (4.30-5.70); RED CELL DISTRIBUTION WIDTH 12.7 % (11.5-20.0); WHITE BLOOD COUNT 7.1 Th/cmm (4.8-10.8)
[2017-05-26 21:33] LABS: HEMATOCRIT 43.3 % (41.0-60); HEMOGLOBIN 14.8 gm/dL (12-16)
[2017-05-26 21:51] LABS: INR 0.88 (0.5-1.4)
[2017-05-26 21:56] LABS: ALB/GLOB RATIO 1.1 (1.0-1.8); ALKALINE PHOSPHATASE 108 U/L (34-104); ANION GAP 11.1 (7.0-16.0); BILIRUBIN,TOTAL 0.3 mg/dL (0.3-1.0); BUN - UREA NITROGEN 14 mg/dL (7-25); CALCIUM SERUM 9.9 mg/dL (8.6-10.3); CARBON DIOXIDE 27.3 mEq/L (21.0-31.0); CHLORIDE 102 mEq/L (98-107); CREATININE - SERUM 0.7 mg/dL (0.7-1.3); GLUCOSE 158 mg/dL (70-105); POTASSIUM SERUM 4.4 mEq/L (3.5-5.1); SGOT 21 U/L (13-39); SGPT/ALT 19 U/L (7-52); SODIUM SERUM 136 mEq/L (136-145)
[2017-05-26 22:25] LABS: URINE BILIRUBIN NEGATIVE (NEGATIVE); URINE BLOOD NEGATIVE (NEGATIVE); URINE GLUCOSE (UA) NEGATIVE (NEGATIVE); URINE KETONE NEGATIVE (NEGATIVE); URINE PH 6.5 (4.6 - 8.0); URINE PROTEIN NEGATIVE (NEGATIVE); URINE UROBILINOGEN 0.2 E.U./dL (0.2 - 1.0)
[2017-05-26 22:36] LABS: URINE BACTERIA MODERATE /hpf (NONE SEEN); URINE COLOR YELLOW; URINE EPITHELIAL CELLS RARE /lpf (FEW); URINE RBC NONE SEEN /hpf (0-5); URINE WBC 0-2 /hpf (0-5)
[2017-05-27] MEDS ORDERED: Sulfamethoxazole/TMP 800/160mg Tab PO ONE (00:17)
[2017-05-27] MEDS ORDERED: Sulfamethoxazole/TMP 800/160mg Tab ONE (00:52)
[2017-05-27] MEDS ORDERED: cefTRIAXone 1 GM in Sodium Chloride 0.9% 50 ML IV SCH (09:00)
== END 2017-05-27 01:00 | disposition left against medical advice (07) ==
LOC: ER 20:41
DX: R46.89 Other symptoms and signs involving appearance and behavior (principal); N39.0 Urinary tract infection, site not specified; R82.71 Bacteriuria; I10 Essential (primary) hypertension; I50.9 Heart failure, unspecified; J45.909 Unspecified asthma, uncomplicated; J44.9 Chronic obstructive pulmonary disease, unspecified
CPT/HCPCS: 36415-UA; 80053-TC; 81001-TC; 82550-TC; 84443-TC; 84484-TC; 85025-TC; 85610-TC; 93005

== ENCOUNTER 2017-09-27 14:56 | Inpatient (IN) | payer MEDICARE, MEDICAID ==
--- NOTE | 2017-09-27 15:18 | ED Physician Chart ---
ED Chief Complaint/HPI - Patient Information Date Seen:: 09/27/17 Time Seen:: 15:17 Chief Complaint:: Increased agitation History of Present Illness:: 62 yo male was brought from [facility] to ER for evaluation of increased agitation. The patient had an argument with his roommate. The patient is wheelchair bound due to fracture of lumbar spine. He had history of caudal regression syndrome. He had lymphedema of bilateral lower extremities. Allergies:: Allergies Allergy/AdvReac Type Severity Reaction Status Date / Time No Known Allergies Allergy Verified 05/26/17 21:05 Vitals:: Vital Signs - 8 hr 09/27/17 15:11 Temp 98.6 F HR 89 RR 18 BP 151/86 O2 Sat % 97 ED Review of Systems - Review of Systems General/Constitutional: No fever Skin: No bruising Head: No headache Eyes: No pain ENT: No nasal drainage Neck: No neck pain Cardio Vascular: No chest pain Pulmonary: No SOB GI: No nausea, No vomiting Musculoskeletal: Back pain Psychiatric: Depression Neurological: Weakness ED Past Medical History - Past Medical History Past Medical History: HTN, DM, CHF, Other ( spinal syndrome (Caudal regression syndrome), chronic pain syndrome) Social History: Smoker, No Alcohol, No Drug Use Surgical History: other (Lumbar surgery, Intraperitoneal morphin pump placement) Psychiatricy History: Depression, Other (Anxiety) Family Medical History - Family Member Mother History Unknown: Yes Ethnicity: Living Status: Hx Family Cancer: No Hx Family Coronary Artery Disease: No Hx Family Congestive Heart Failure: No Hx Family Hypertension: Yes Hx Family Stroke: No Hx Family Diabetes: Yes Hx Family Seizures: No Hx Family Dementia: No Hx Family AIDS: No Hx Family HIV: No Hx Family COPD: No Hx Family Hepatitis: No Hx Family Psychiatric Problems: No Hx Family Tuberculosis: No not known History Unknown: Yes ED Physical Exam - Physical Examination General/Constitutional: Awake, Alert Head: Atraumatic Eyes: PERRL Skin: No ecchymosis ENMT: Nasal exam nl Neck: No nuchal rigidity Respiratory: Clear to Auscultation Cardio Vascular: RRR, No murmur, gallop, rubs, NL S1 S2 GI: No tenderness/rebounding/guarding Other Extremities comments:: Deformity of bilateral lower extremities Other Neuro/Psych comments:: BLE 3/5, BUE 5/5, sensation intact ED Assessment - Assessment General Assessment: Agitation Hypertension DM II Lymphedema of bilateral lower extremities Depression Wheelchair bound Assessment/Comments:: CBC, CMP, UA CXR, EKG Patient is cleared for gerchandlerych admit ED Septic Shock - . Is Septic Shock (SBP<90, OR Lactate>4 mmol\L) present?: No - <6hrs of presentation: Vital Signs: Vital Signs - 8 hr 09/27/17 15:11 Temp 98.6 F HR 89 RR 18 BP 151/86 O2 Sat % 97 ED Reassessment (Disposition) - Reassessment Reassessment Condition:: Unchanged - Patient Disposition Discharge/Transfer:: Ander w/in this hosp Admitting Medical Physician:: Danny Esparza Admitting Psych Physician:: Gary Dutton
[2017-09-27 15:45] LABS: % BASOPHILS 0.8 % (0.0-2.0); % LYMPHOCYTES 34.6 % (20.0-50.0); % MONOCYTES 5.4 % (2.0-10.0); % NEUTROPHILS 56.2 % (40.0-80.0); BASOPHILE ABSOLUTE 0.1 Th/cumm (0-0.2); EOSINOPHILE ABSOLUTE 0.2 Th/cmm (0.1-0.4); HEMATOCRIT 43.5 % (41.0-60); HEMOGLOBIN 14.9 gm/dL (12-16); LYMPHOCYTE ABSOLUTE 2.2 Th/cmm (1.5-3.0); MEAN CORPUSCULAR HEMOGLOBIN 32.2 pg (26.0-30.0); MEAN CORPUSCULAR HGB CONC 34.3 pg (28.0-36.0); MEAN PLATELET VOLUME 6.9 fl; MONOCYTE ABSOLUTE 0.3 Th/cmm (0.3-1.0); NEUTROPHILE ABSOLUTE 3.5 Th/cmm (1.8-8.0); PLATELET COUNT 262 Th/cmm (150-400); RED BLOOD COUNT 4.62 Mil/cmm (4.30-5.70); RED CELL DISTRIBUTION WIDTH 12.4 % (11.5-20.0); WHITE BLOOD COUNT 6.3 Th/cmm (4.8-10.8)
[2017-09-27 16:05] LABS: ALB/GLOB RATIO 1.3 (1.0-1.8); ALBUMIN 4.1 gm/dL (4.2-5.5); ALKALINE PHOSPHATASE 100 U/L (34-104); BILIRUBIN,TOTAL 0.3 mg/dL (0.3-1.0); BUN - UREA NITROGEN 14 mg/dL (7-25); CALCIUM SERUM 9.9 mg/dL (8.6-10.3); CARBON DIOXIDE 24.4 mEq/L (21.0-31.0); CHLORIDE 104 mEq/L (98-107); CREATININE - SERUM 0.9 mg/dL (0.7-1.3); GFR AFRICAN-AMERICAN > 60.0 ml/min (>90); GFR NON AFRICAN-AMERICAN > 60.0 ml/min; GLUCOSE 180 mg/dL (70-105); POTASSIUM SERUM 4.4 mEq/L (3.5-5.1); SGOT 19 U/L (13-39); SGPT/ALT 21 U/L (7-52); SODIUM SERUM 137 mEq/L (136-145); TOTAL PROTEIN,SERUM 7.3 gm/dL (6.0-8.3)
[2017-09-27 16:33] LABS: URINE MICROSCOPIC INDICATED? YES; URINE SOURCE RANDOM
[2017-09-27 16:50] LABS: URINE BILIRUBIN NEGATIVE (NEGATIVE); URINE BLOOD NEGATIVE (NEGATIVE); URINE GLUCOSE (UA) NEGATIVE (NEGATIVE); URINE KETONE NEGATIVE (NEGATIVE); URINE LEUKOCYTE ESTERASE NEGATIVE (NEGATIVE); URINE NITRATE NEGATIVE (NEGATIVE); URINE PROTEIN NEGATIVE (NEGATIVE); URINE UROBILINOGEN 0.2 E.U./dL (0.2 - 1.0)
[2017-09-27 17:11] LABS: URINE BACTERIA NONE SEEN /hpf (NONE SEEN); URINE CLARITY CLEAR (CLEAR); URINE COLOR YELLOW; URINE EPITHELIAL CELLS RARE /lpf (FEW); URINE RBC 0-2 /hpf (0-5); URINE WBC 0-2 /hpf (0-5)
[2017-09-27] MEDS ORDERED: Guaifenesin DM 10 ML UDC PO PRN (19:17)
[2017-09-27] MEDS ORDERED: Magnesium Hydroxide (MOM) 30 mL UDC PO PRN (19:17)
[2017-09-27] MEDS ORDERED: CLONAZEPAM 0.5 MG PO SCH (19:30)
--- NOTE | 2017-09-27 19:46 | History & Physical ---
ADMIT DATE: 09/27/2017 CHIEF COMPLAINT: Severe anxiety disorder with major depression. HISTORY OF PRESENT ILLNESS: The patient is a 62-year-old male with long history of insulin required diabetes mellitus, CHF, peripheral vascular disease, chronic lymphedema of lower extremity, depression, a resident at [facility] admitted to [facility] with severe depression, severe anxiety disorder. He denies any chest pain, shortness of breath, nausea, vomiting, fever or chills. PAST MEDICAL HISTORY: Significant for hypertension, CHF, diabetes mellitus, lymphedema of lower extremities, depression. PAST SURGICAL HISTORY: No recent surgery. ALLERGIES: None. MEDICATIONS: Follow admission reconciliation. SOCIAL HISTORY: No smoking, no alcohol, no drug. FAMILY HISTORY: Noncontributory. REVIEW OF SYSTEMS: IMMUNO SYSTEM: No history of chronic renal disorder. CARDIOVASCULAR SYSTEM: History of hypertension, CHF. ENDOCRINE SYSTEM: History of diabetes mellitus. GASTROINTESTINAL SYSTEM: No upper or lower gastrointestinal bleed. NEUROLOGICAL SYSTEM: No seizure disorder. MUSCULOSKELETAL SYSTEM: He has chronic lymphedema of lower extremities, degenerative joint disease. PHYSICAL EXAMINATION: GENERAL: He is awake, alert, oriented. VITAL SIGNS: Temperature is 98.6, heart rate 89, blood pressure 161/86. HEENT: Normocephalic. Pupils reactive to light and accommodation. Sclerae clear. NECK: Supple. Negative for lymphadenopathy, JVD or bruit. CHEST: Air bilaterally normal. No rhonchi or wheezing. HEART: S1, S2 normal. No murmur, gallop or rhythm. ABDOMEN: Soft, bowel sounds positive. EXTREMITIES: Plus edema of lower extremities. NEUROLOGIC: Awake, alert, oriented. No focal motor or sensory deficit. Cranial nerves 2-12 is intact. LABORATORY DATA: White blood 6.3, hemoglobin 14.9, hematocrit 43.5, platelets 262. Sodium 137, potassium 4.4, BUN 14, creatinine 0.9. ASSESSMENT: 1. Insulin required diabetes mellitus. 2. Hypertension. 3. Congestive heart failure. 4. Chronic lymphedema of lower extremities. 5. Major depression. PLAN: The patient will be admitted to the hospital, following Dr. Dutton's service, prompted the rest of hospitalization is depression. Medical problems addressed at discharge, diabetes mellitus, hypertension. The patient is medically stable for activity. Thank you, Dr. Dutton, for asking me to see your patient. JOB# [id number]
[2017-09-27] MEDS: INSULIN ASPART SLIDING SCALE 100 UNITS/ML UNIT SUBQ SCH (21:11)
[2017-09-27] MEDS: Insulin Detemir 100 units/mL 10mL Vial SUBQ SCH (21:20)
[2017-09-27 22:05] VITALS: BP 136/70
[2017-09-28] MEDS: INSULIN ASPART SLIDING SCALE 100 UNITS/ML UNIT SUBQ SCH ×4 (06:49→20:58)
--- NOTE | 2017-09-28 08:57 | Diagnostic Imaging Report ---
CHEST X-RAY: AP view INDICATION: Shortness of breath COMPARISON: 07/06/2016 FINDINGS: Increased interstitial lung markings are noted. No focal consolidation or effusions. Heart size is at the upper limits of normal. Atherosclerosis is noted. Degenerative changes of the spine are noted. IMPRESSION: Increased interstitial lung markings suggestive of chronic lung changes. No focal consolidation identified. Atherosclerotic vascular disease.
[2017-09-28] MEDS ORDERED: Venlafaxine HCl ER 37.5 mg Tab PO SCH (09:00)
[2017-09-28] MEDS ORDERED: Non-Formulary Item 1 EA (Cranberry Fruit Extract [Cranberry] 425 MG) PO SCH (09:00)
[2017-09-28] MEDS: Multivitamin w/ Minerals Tab PO SCH (09:29)
[2017-09-28] MEDS: Enoxaparin 30 mg/0.3 mL 0.3mL Syr SUBQ SCH (09:31)
--- NOTE | 2017-09-28 14:03 | General Progress Note ---
Subjective - Review of Systems Service Date: 09/28/17 Subjective: awake and alert, sitting in wheelchair no distress Objective - Results Result Diagrams: 09/27/17 15:37 09/27/17 15:37 Recent Labs: Laboratory Last Values WBC 6.3 Th/cmm (4.8-10.8) 09/27/17 15:37 RBC 4.62 Mil/cmm (4.30-5.70) 09/27/17 15:37 Hgb 14.9 gm/dL (12-16) 09/27/17 15:37 Hct 43.5 % (41.0-60) 09/27/17 15:37 MCV 94.0 fl (80-99) 09/27/17 15:37 MCH 32.2 pg (26.0-30.0) H 09/27/17 15:37 MCHC Differential 34.3 pg (28.0-36.0) 09/27/17 15:37 RDW 12.4 % (11.5-20.0) 09/27/17 15:37 Plt Count 262 Th/cmm (150-400) 09/27/17 15:37 MPV 6.9 fl 09/27/17 15:37 Neutrophils % 56.2 % (40.0-80.0) 09/27/17 15:37 Lymphocytes % 34.6 % (20.0-50.0) 09/27/17 15:37 Monocytes % 5.4 % (2.0-10.0) 09/27/17 15:37 Eosinophils % 3.0 % (0.0-5.0) 09/27/17 15:37 Basophils % 0.8 % (0.0-2.0) 09/27/17 15:37 Sodium 137 mEq/L (136-145) 09/27/17 15:37 Potassium 4.4 mEq/L (3.5-5.1) 09/27/17 15:37 Chloride 104 mEq/L (98-107) 09/27/17 15:37 Carbon Dioxide 24.4 mEq/L (21.0-31.0) 09/27/17 15:37 Anion Gap 13.0 (7.0-16.0) 09/27/17 15:37 BUN 14 mg/dL (7-25) 09/27/17 15:37 Creatinine 0.9 mg/dL (0.7-1.3) 09/27/17 15:37 Est GFR ( Amer) > 60.0 ml/min (>90) 09/27/17 15:37 Est GFR (Non-Af Amer) > 60.0 ml/min 09/27/17 15:37 BUN/Creatinine Ratio 15.6 09/27/17 15:37 Glucose 180 mg/dL (70-105) H 09/27/17 15:37 POC Glucose 154 MG/DL (70 - 105) H 09/28/17 11:21 Calcium 9.9 mg/dL (8.6-10.3) 09/27/17 15:37 Total Bilirubin 0.3 mg/dL (0.3-1.0) 09/27/17 15:37 AST 19 U/L (13-39) 09/27/17 15:37 ALT 21 U/L (7-52) 09/27/17 15:37 Alkaline Phosphatase 100 U/L (34-104) 09/27/17 15:37 Troponin I < 0.01 ng/mL (0.01-0.05) L 09/27/17 15:37 B-Natriuretic Peptide 17.4 pg/mL (5.0-100.0) 09/27/17 15:37 Total Protein 7.3 gm/dL (6.0-8.3) 09/27/17 15:37 Albumin 4.1 gm/dL (4.2-5.5) L 09/27/17 15:37 Globulin 3.2 gm/dL 09/27/17 15:37 Albumin/Globulin Ratio 1.3 (1.0-1.8) 09/27/17 15:37 TSH 1.46 uIU/ml (0.34-5.60) 09/27/17 15:37 Urine Source RANDOM 09/27/17 16:28 Urine Color YELLOW 09/27/17 16:28 Urine Clarity CLEAR (CLEAR) 09/27/17 16:28 Urine pH 7.0 (4.6 - 8.0) 09/27/17 16:28 Ur Specific [place] 1.010 (1.005-1.030) 09/27/17 16:28 Urine Protein NEGATIVE mg/dL (NEGATIVE) 03/30/18 16:28 Urine Glucose (UA) NEGATIVE mg/dL (NEGATIVE) 09/27/17 16:28 Urine Ketones NEGATIVE mg/dL (NEGATIVE) 09/27/17 16:28 Urine Blood NEGATIVE (NEGATIVE) 09/27/17 16:28 Urine Nitrate NEGATIVE (NEGATIVE) 09/27/17 16:28 Urine Bilirubin NEGATIVE (NEGATIVE) 09/27/17 16:28 Urine Urobilinogen 0.2 E.U./dL (0.2 - 1.0) 09/27/17 16:28 Ur Leukocyte Esterase NEGATIVE (NEGATIVE) 09/27/17 16:28 Urine RBC 0-2 /hpf (0-5) H 09/27/17 16:28 Urine WBC 0-2 /hpf (0-5) 09/27/17 16:28 Ur Epithelial Cells RARE /lpf (FEW) 09/27/17 16:28 Urine Bacteria NONE SEEN /hpf (NONE SEEN) 09/27/17 16:28 - Physical Exam Vitals and I&O: Vital Signs Temp 97.0 F 09/28/17 06:39 Pulse 66 09/28/17 09:30 Resp 16 09/27/17 18:36 BP 121/72 09/28/17 09:30 Pulse Ox 18 09/28/17 06:39 Active Medications: Current Medications Carvedilol (Coreg) 3.125 mg PO Q12HR [facility] Stop: 11/26/17 20:59 Last Admin: 09/28/17 09:30 Dose: 3.125 mg Clonazepam (Klonopin) 0.5 mg PO Q24H [facility] Stop: 11/27/17 09:44 Docusate Sodium (Colace) 100 mg PO BID [facility] Stop: 11/27/17 08:59 Last Admin: 09/28/17 09:29 Dose: 100 mg Enoxaparin Sodium (Lovenox) 30 mg SUBQ DAILY [place] Stop: 11/27/17 08:59 Last Admin: 09/28/17 09:31 Dose: 30 mg Famotidine (Pepcid) 20 mg PO DAILY [place] Stop: 11/27/17 08:59 Last Admin: 09/28/17 09:29 Dose: 20 mg Gabapentin (Neurontin) 300 mg PO Q12H [place] Stop: 11/26/17 19:29 Last Admin: 09/28/17 06:48 Dose: 300 mg Guaifenesin/Dextromethorphan (Robitussin Dm) 15 ml PO Q6H PRN PRN Reason: Cough Stop: 11/26/17 19:16 Ibuprofen (Motrin) 600 mg PO Q6HR PRN PRN Reason: Pain (Mild) Stop: 11/26/17 19:16 Insulin Aspart (Novolog Insulin Sliding Scale) 0 units SUBQ ACHS [place] PRN Reason: Protocol Stop: 11/26/17 20:59 Last Admin: 09/28/17 11:35 Dose: 3 units Insulin Detemir (Levemir Insulin) 12 units SUBQ HS [place] PRN Reason: Protocol Stop: 11/26/17 20:59 Last Admin: 09/27/17 21:20 Dose: 12 100 Magnesium Hydroxide (Milk Of Magnesia) 30 ml PO DAILY PRN PRN Reason: Constipation Stop: 11/26/17 19:16 Spironolactone (Aldactone) 50 mg PO DAILY [facility] Stop: 11/27/17 08:59 Last Admin: 09/28/17 09:29 Dose: 50 mg Temazepam (Restoril) 15 mg PO HS PRN; Protocol PRN Reason: Insomnia Stop: 11/26/17 19:16 Last Admin: 09/27/17 21:58 Dose: 15 mg Venlafaxine HCl (Effexor) 37.5 mg PO DAILY [facility] Stop: 11/28/17 08:59 General: Alert, No acute distress HEENT: Atraumatic, PERRLA, EOMI Neck: Supple, JVD, Thyromegaly Cardiovascular: Regular rate, Normal S1, Normal S2 Lungs: Clear to auscultation Abdomen: Bowel sounds, Soft Extremities: Edema (2+ bilat LE) Neurological: Normal speech Psych/Mental Status: Mental status NL Assessment/Plan - Assessment Assessment: IDDM HTN CHF CHR LYMPHEDEMA DEPRESSION - Plan Plan: CONTINUE CURRENT TREATMENT Nutritional Asmnt/Malnutr-PDOC - Dietary Evaluation Malnutrition Findings (Please click <Entered> for more info): Nutritional Asmnt/Malnutrition Start: 09/28/17 10: 01 Text: Status: Complete Freq: Document 09/28/17 10:01 JANNY (Rec: 09/28/17 10:14 JANNY DESIR FN) Nutritional Asmnt/Malnutrition Patient General Information Diagnosis psychosis Pertinent Medical Hx/Surgical Hx DM, CHF, severe anxiety disorder, chronic lumphedmia LE, depression Subjective Information Pt sitting up in rec room at time of visit Current Diet Order/ Nutrition Support CCHO 60g Pertinent Medications colace, pepcid, s/s insulin, MOM Pertinent Labs 09/27: Na 137, K 4.4, cl 104, CO2 24.4, BUN 14, Cr 0.9, Ca 9 .9, glucose 180 Nutritional Hx/Data Height 1.65 m Height (Calculated Centimeters) 165.1 Current Weight (lbs) 99.79 kg Weight (Calculated Kilograms) 99.8 Weight (Calculated Grams) 87129.3 Body Mass Index (BMI) 36.6 Weight Status Obese GI Symptoms GI Symptoms None Last BM none noted Cultural/Ethnic/Yazdanism Belief none noted Usual diet at home CCHO Skin Integrity/Comment: boni score 17 Estimated Nutritional Goals BEE in Kcals: Adj wt of IBW Calories/Kcals/Kg 25-30kcals/kg Kcals Calculated 1763-2115kcals/day Protein: Adj wt of IBW Protein g/k-1.2g/kg Protein Calculated 71-85g/day Fluid: ml 1763-2115ml/day (1ml/kcal) Nutritional Problem 1. Problem Problem No nutrition diagnosis at this time. Intervention/Recommendation Comments Recommend continuing CCHO 60g diet Expected Outcomes/Goals Expected Outcomes/Goals PO intake >75%
[2017-09-28] MEDS: Insulin Detemir 100 units/mL 10mL Vial SUBQ SCH (20:59)
--- NOTE | 2017-09-29 02:46 | Psychosocial Evaluation ---
DATE OF SERVICE: 09/28/2017 JUSTIFICATION FOR HOSPITALIZATION: Agitation, yelling, screaming and crying episodes. HISTORY OF PRESENT ILLNESS: A 62-year-old male brought in from a [facility] increased agitation, very upset with the roommate, argument with roommate. He was crying, yelling, screaming, complaining that he could not take it anymore, attesting to some depression, feeling hopeless. PAST PSYCHIATRIC HISTORY: Denies any suicide history. FAMILY HISTORY: Noncontributory. ALLERGIES: Noted. VITALS: Noted. SOCIAL HISTORY: Born in [place]. Not , no kids. He is smoking cigarettes. Currently [facility] in a [facility] in [facility]. MENTAL STATUS EXAMINATION: Stated age, fair eye contact. Speech within normal limits. Mood, "I got upset." Affect constricted. Thought processes were linear. No SI, no HI, no overt psychotic symptoms. Insight and judgment diminished. Under medical, diabetes, lymphedema and the patient is wheelchair bound. PROVISIONAL DIAGNOSES: Major depression, unspecified; anxiety, unspecified. Under medical, please see full H and P. ESTIMATED LENGTH OF STAY: 5-7 days. ASSESSMENT: The patient requiring inpatient hospitalization, got upset, history of depression, yelling, hopeless, helpless, crying episodes, some agitation and anger. PLAN: We will continue to monitor, increase collateral. Given the patient's ongoing symptoms, he is not currently safe for discharge at this time. CONDITIONS FOR DISCHARGE: Improved mood, improved affect, and better control of his anger. [facility]# [id number]
[2017-09-29] MEDS: INSULIN ASPART SLIDING SCALE 100 UNITS/ML UNIT SUBQ SCH ×4 (06:42→21:15)
--- NOTE | 2017-09-29 08:12 | General Progress Note ---
Subjective - Review of Systems Service Date: 09/29/17 Subjective: awake and alert no distress Objective - Results Result Diagrams: 09/27/17 15:37 09/27/17 15:37 Recent Labs: Laboratory Last Values WBC 6.3 Th/cmm (4.8-10.8) 09/27/17 15:37 RBC 4.62 Mil/cmm (4.30-5.70) 09/27/17 15:37 Hgb 14.9 gm/dL (12-16) 09/27/17 15:37 Hct 43.5 % (41.0-60) 09/27/17 15:37 MCV 94.0 fl (80-99) 09/27/17 15:37 MCH 32.2 pg (26.0-30.0) H 09/27/17 15:37 MCHC Differential 34.3 pg (28.0-36.0) 09/27/17 15:37 RDW 12.4 % (11.5-20.0) 09/27/17 15:37 Plt Count 262 Th/cmm (150-400) 09/27/17 15:37 MPV 6.9 fl 09/27/17 15:37 Neutrophils % 56.2 % (40.0-80.0) 09/27/17 15:37 Lymphocytes % 34.6 % (20.0-50.0) 09/27/17 15:37 Monocytes % 5.4 % (2.0-10.0) 09/27/17 15:37 Eosinophils % 3.0 % (0.0-5.0) 09/27/17 15:37 Basophils % 0.8 % (0.0-2.0) 09/27/17 15:37 Sodium 137 mEq/L (136-145) 09/27/17 15:37 Potassium 4.4 mEq/L (3.5-5.1) 09/27/17 15:37 Chloride 104 mEq/L (98-107) 09/27/17 15:37 Carbon Dioxide 24.4 mEq/L (21.0-31.0) 09/27/17 15:37 Anion Gap 13.0 (7.0-16.0) 09/27/17 15:37 BUN 14 mg/dL (7-25) 09/27/17 15:37 Creatinine 0.9 mg/dL (0.7-1.3) 09/27/17 15:37 Est GFR ( Amer) > 60.0 ml/min (>90) 09/27/17 15:37 Est GFR (Non-Af Amer) > 60.0 ml/min 09/27/17 15:37 BUN/Creatinine Ratio 15.6 09/27/17 15:37 Glucose 180 mg/dL (70-105) H 09/27/17 15:37 POC Glucose 106 MG/DL (70 - 105) H 09/29/17 06:06 Hemoglobin A1c % 7.0 % (4.0-6.0) H 09/27/17 15:37 Calcium 9.9 mg/dL (8.6-10.3) 09/27/17 15:37 Total Bilirubin 0.3 mg/dL (0.3-1.0) 09/27/17 15:37 AST 19 U/L (13-39) 09/27/17 15:37 ALT 21 U/L (7-52) 09/27/17 15:37 Alkaline Phosphatase 100 U/L (34-104) 09/27/17 15:37 Troponin I < 0.01 ng/mL (0.01-0.05) L 09/27/17 15:37 B-Natriuretic Peptide 17.4 pg/mL (5.0-100.0) 09/27/17 15:37 Total Protein 7.3 gm/dL (6.0-8.3) 09/27/17 15:37 Albumin 4.1 gm/dL (4.2-5.5) L 09/27/17 15:37 Globulin 3.2 gm/dL 09/27/17 15:37 Albumin/Globulin Ratio 1.3 (1.0-1.8) 09/27/17 15:37 TSH 1.46 uIU/ml (0.34-5.60) 09/27/17 15:37 Urine Source RANDOM 09/27/17 16:28 Urine Color YELLOW 09/27/17 16:28 Urine Clarity CLEAR (CLEAR) 09/27/17 16:28 Urine pH 7.0 (4.6 - 8.0) 09/27/17 16:28 Ur Specific [place] 1.010 (1.005-1.030) 09/27/17 16:28 Urine Protein NEGATIVE mg/dL (NEGATIVE) 09/27/17 16:28 Urine Glucose (UA) NEGATIVE mg/dL (NEGATIVE) 09/27/17 16:28 Urine Ketones NEGATIVE mg/dL (NEGATIVE) 09/27/17 16:28 Urine Blood NEGATIVE (NEGATIVE) 09/27/17 16:28 Urine Nitrate NEGATIVE (NEGATIVE) 09/27/17 16:28 Urine Bilirubin NEGATIVE (NEGATIVE) 09/27/17 16:28 Urine Urobilinogen 0.2 E.U./dL (0.2 - 1.0) 09/27/17 16:28 Ur Leukocyte Esterase NEGATIVE (NEGATIVE) 09/27/17 16:28 Urine RBC 0-2 /hpf (0-5) H 09/27/17 16:28 Urine WBC 0-2 /hpf (0-5) 09/27/17 16:28 Ur Epithelial Cells RARE /lpf (FEW) 09/27/17 16:28 Urine Bacteria NONE SEEN /hpf (NONE SEEN) 09/27/17 16:28 - Physical Exam Vitals and I&O: Vital Signs Temp 98.4 F 09/29/17 07:05 Pulse 84 09/29/17 07:05 Resp 20 09/29/17 07:05 BP 134/78 09/29/17 07:05 Pulse Ox 98 09/29/17 07:05 Intake & Output 09/28/17 09/29/17 09/29/17 18:59 06:59 18:59 Intake Total 1200 240 Balance 1200 240 Intake: Oral 1200 240 Other: # Voids 3 1 Active Medications: Current Medications Carvedilol (Coreg) 3.125 mg PO Q12HR [facility] Stop: 11/26/17 20:59 Last Admin: 09/28/17 20:55 Dose: 3.125 mg Clonazepam (Klonopin) 0.5 mg PO Q24H [facility] Stop: 11/27/17 09:44 Last Admin: 09/28/17 10:00 Dose: 0.5 mg Docusate Sodium (Colace) 100 mg PO BID [facility] Stop: 11/27/17 08:59 Last Admin: 09/28/17 18:29 Dose: 100 mg Enoxaparin Sodium (Lovenox) 30 mg SUBQ DAILY [facility] Stop: 11/27/17 08:59 Last Admin: 09/28/17 09:31 Dose: 30 mg Famotidine (Pepcid) 20 mg PO DAILY [facility] Stop: 11/27/17 08:59 Last Admin: 09/28/17 09:29 Dose: 20 mg Gabapentin (Neurontin) 300 mg PO Q12H [facility] Stop: 11/26/17 19:29 Last Admin: 09/29/17 06:37 Dose: 300 mg Guaifenesin/Dextromethorphan (Robitussin Dm) 15 ml PO Q6H PRN PRN Reason: Cough Stop: 11/26/17 19:16 Ibuprofen (Motrin) 600 mg PO Q6HR PRN PRN Reason: Pain (Mild) Stop: 11/26/17 19:16 Insulin Aspart (Novolog Insulin Sliding Scale) 0 units SUBQ ACHS [facility] PRN Reason: Protocol Stop: 11/26/17 20:59 Last Admin: 09/29/17 06:42 Dose: Not Given Insulin Detemir (Levemir Insulin) 12 units SUBQ HS [facility] PRN Reason: Protocol Stop: 11/26/17 20:59 Last Admin: 09/28/17 20:59 Dose: 12 100 Magnesium Hydroxide (Milk Of Magnesia) 30 ml PO DAILY PRN PRN Reason: Constipation Stop: 11/26/17 19:16 Spironolactone (Aldactone) 50 mg PO DAILY [facility] Stop: 11/27/17 08:59 Last Admin: 09/28/17 09:29 Dose: 50 mg Temazepam (Restoril) 15 mg PO HS PRN; Protocol PRN Reason: Insomnia Stop: 11/26/17 19:16 Last Admin: 09/28/17 20:57 Dose: 15 mg Venlafaxine HCl (Effexor) 37.5 mg PO DAILY [facility] Stop: 11/28/17 08:59 General: Alert, No acute distress HEENT: Atraumatic, PERRLA, EOMI Neck: Supple, JVD, Thyromegaly Cardiovascular: Regular rate, Normal S1, Normal S2 Lungs: Clear to auscultation Abdomen: Bowel sounds, Soft Extremities: Edema (2+ bilat LE) Neurological: Normal speech Psych/Mental Status: Mental status NL Assessment/Plan - Assessment Assessment: IDDM HTN CHF CHR LYMPHEDEMA DEPRESSION - Plan Plan: CONTINUE CURRENT TREATMENT Nutritional Asmnt/Malnutr-PDOC - Dietary Evaluation Malnutrition Findings (Please click <Entered> for more info): Nutritional Asmnt/Malnutrition Start: 09/28/17 10: 01 Text: Status: Complete Freq: Document 09/28/17 10:01 JANNY (Rec: 09/28/17 10:14 JANNY THANG- FNS1) Nutritional Asmnt/Malnutrition Patient General Information Diagnosis psychosis Pertinent Medical Hx/Surgical Hx DM, CHF, severe anxiety disorder, chronic lumphedmia LE, depression Subjective Information Pt sitting up in rec room at time of visit Current Diet Order/ Nutrition Support CCHO 60g Pertinent Medications colace, pepcid, s/s insulin, MOM Pertinent Labs 09/27: Na 137, K 4.4, cl 104, CO2 24.4, BUN 14, Cr 0.9, Ca 9 .9, glucose 180 Nutritional Hx/Data Height 1.65 m Height (Calculated Centimeters) 165.1 Current Weight (lbs) 99.79 kg Weight (Calculated Kilograms) 99.8 Weight (Calculated Grams) 66416.3 Body Mass Index (BMI) 36.6 Weight Status Obese GI Symptoms GI Symptoms None Last BM none noted Cultural/Ethnic/Denominational Belief none noted Usual diet at home CCHO Skin Integrity/Comment: boni score 17 Estimated Nutritional Goals BEE in Kcals: Adj wt of IBW Calories/Kcals/Kg 25-30kcals/kg Kcals Calculated 1763-2115kcals/day Protein: Adj wt of IBW Protein g/k-1.2g/kg Protein Calculated 71-85g/day Fluid: ml 1763-2115ml/day (1ml/kcal) Nutritional Problem 1. Problem Problem No nutrition diagnosis at this time. Intervention/Recommendation Comments Recommend continuing CCHO 60g diet Expected Outcomes/Goals Expected Outcomes/Goals PO intake >75%
[2017-09-29] MEDS: Multivitamin w/ Minerals Tab PO SCH (09:13)
[2017-09-29] MEDS: Enoxaparin 30 mg/0.3 mL 0.3mL Syr SUBQ SCH (09:15)
--- NOTE | 2017-09-29 16:59 | Progress Notes ---
DATE: 09/29/2017 SUBJECTIVE: The patient in the hospital due to agitation, yelling, screaming and crying episodes, not talking to me on exam, appears upset. The patient remains impulsive, unpredictable, not safe for a lower level of care. Medications were reviewed. The patient is eating with some prompting. Sleeping fairly well. ASSESSMENT: The patient remains symptomatic, still upset, does not want to talk to me this morning, but was more amenable to interview yesterday. Ongoing concerns for safety, ongoing concerns for his behavioral disturbances. Medications were reviewed. He is currently on Effexor. We will continue to monitor and follow up. Titrate medications as needed. JOB# [id number] NIKO
[2017-09-29] MEDS: Insulin Detemir 100 units/mL 10mL Vial SUBQ SCH (20:52)
[2017-09-30] MEDS: INSULIN ASPART SLIDING SCALE 100 UNITS/ML UNIT SUBQ SCH ×4 (06:53→20:54)
[2017-09-30] MEDS: Enoxaparin 30 mg/0.3 mL 0.3mL Syr SUBQ SCH (09:16)
[2017-09-30] MEDS: Multivitamin w/ Minerals Tab PO SCH (09:16)
--- NOTE | 2017-09-30 18:25 | Internal Medicine Prog Note ---
Internal Medicine Subjective - Subjective Service Date: 09/30/17 Patient seen and examined:: with staff (HE FEELS BETTER,NO CHST PAIN OR SOB.) Patient is:: awake, verbal, in wheelchair, talking Per staff patient has:: no adverse event (HE FEELS WELL) Internal Medicine Objective - Results Result Diagrams: 09/27/17 15:37 09/27/17 15:37 Recent Labs: Laboratory Last Values WBC 6.3 Th/cmm (4.8-10.8) 09/27/17 15:37 RBC 4.62 Mil/cmm (4.30-5.70) 09/27/17 15:37 Hgb 14.9 gm/dL (12-16) 09/27/17 15:37 Hct 43.5 % (41.0-60) 09/27/17 15:37 MCV 94.0 fl (80-99) 09/27/17 15:37 MCH 32.2 pg (26.0-30.0) H 09/27/17 15:37 MCHC Differential 34.3 pg (28.0-36.0) 09/27/17 15:37 RDW 12.4 % (11.5-20.0) 09/27/17 15:37 Plt Count 262 Th/cmm (150-400) 09/27/17 15:37 MPV 6.9 fl 09/27/17 15:37 Neutrophils % 56.2 % (40.0-80.0) 09/27/17 15:37 Lymphocytes % 34.6 % (20.0-50.0) 09/27/17 15:37 Monocytes % 5.4 % (2.0-10.0) 09/27/17 15:37 Eosinophils % 3.0 % (0.0-5.0) 09/27/17 15:37 Basophils % 0.8 % (0.0-2.0) 09/27/17 15:37 Sodium 137 mEq/L (136-145) 09/27/17 15:37 Potassium 4.4 mEq/L (3.5-5.1) 09/27/17 15:37 Chloride 104 mEq/L (98-107) 09/27/17 15:37 Carbon Dioxide 24.4 mEq/L (21.0-31.0) 09/27/17 15:37 Anion Gap 13.0 (7.0-16.0) 09/27/17 15:37 BUN 14 mg/dL (7-25) 09/27/17 15:37 Creatinine 0.9 mg/dL (0.7-1.3) 09/27/17 15:37 Est GFR ( Amer) > 60.0 ml/min (>90) 09/27/17 15:37 Est GFR (Non-Af Amer) > 60.0 ml/min 09/27/17 15:37 BUN/Creatinine Ratio 15.6 09/27/17 15:37 Glucose 180 mg/dL (70-105) H 09/27/17 15:37 POC Glucose 149 MG/DL (70 - 105) H 09/30/17 17:21 Hemoglobin A1c % 7.0 % (4.0-6.0) H 09/27/17 15:37 Calcium 9.9 mg/dL (8.6-10.3) 09/27/17 15:37 Total Bilirubin 0.3 mg/dL (0.3-1.0) 09/27/17 15:37 AST 19 U/L (13-39) 09/27/17 15:37 ALT 21 U/L (7-52) 09/27/17 15:37 Alkaline Phosphatase 100 U/L (34-104) 09/27/17 15:37 Troponin I < 0.01 ng/mL (0.01-0.05) L 09/27/17 15:37 B-Natriuretic Peptide 17.4 pg/mL (5.0-100.0) 09/27/17 15:37 Total Protein 7.3 gm/dL (6.0-8.3) 09/27/17 15:37 Albumin 4.1 gm/dL (4.2-5.5) L 09/27/17 15:37 Globulin 3.2 gm/dL 09/27/17 15:37 Albumin/Globulin Ratio 1.3 (1.0-1.8) 09/27/17 15:37 TSH 1.46 uIU/ml (0.34-5.60) 09/27/17 15:37 Urine Source RANDOM 09/27/17 16:28 Urine Color YELLOW 09/27/17 16:28 Urine Clarity CLEAR (CLEAR) 09/27/17 16:28 Urine pH 7.0 (4.6 - 8.0) 09/27/17 16:28 Ur Specific [place] 1.010 (1.005-1.030) 09/27/17 16:28 Urine Protein NEGATIVE mg/dL (NEGATIVE) 09/27/17 16:28 Urine Glucose (UA) NEGATIVE mg/dL (NEGATIVE) 09/27/17 16:28 Urine Ketones NEGATIVE mg/dL (NEGATIVE) 09/27/17 16:28 Urine Blood NEGATIVE (NEGATIVE) 09/27/17 16:28 Urine Nitrate NEGATIVE (NEGATIVE) 09/27/17 16:28 Urine Bilirubin NEGATIVE (NEGATIVE) 09/27/17 16:28 Urine Urobilinogen 0.2 E.U./dL (0.2 - 1.0) 09/27/17 16:28 Ur Leukocyte Esterase NEGATIVE (NEGATIVE) 09/27/17 16:28 Urine RBC 0-2 /hpf (0-5) H 09/27/17 16:28 Urine WBC 0-2 /hpf (0-5) 09/27/17 16:28 Ur Epithelial Cells RARE /lpf (FEW) 09/27/17 16:28 Urine Bacteria NONE SEEN /hpf (NONE SEEN) 09/27/17 16:28 - Physical Exam Vitals and I&O: Vital Signs Temp 97.8 F 09/30/17 14:00 Pulse 74 09/30/17 14:00 Resp 20 09/30/17 14:59 BP 144/94 09/30/17 14:00 Pulse Ox 98 09/30/17 14:00 Intake & Output 09/29/17 09/30/17 09/30/17 18:59 06:59 18:59 Intake Total 5296 420 6166 Balance 4280 466 6414 Intake: Oral 1348 333 1010 Other: # Voids 4 1 4 # Bowel Movements 1 1 Active Medications: Current Medications Carvedilol (Coreg) 3.125 mg PO Q12HR [facility] Stop: 11/26/17 20:59 Last Admin: 09/30/17 09:17 Dose: 3.125 mg Clonazepam (Klonopin) 0.5 mg PO Q24H [facility] Stop: 11/27/17 09:44 Last Admin: 09/30/17 09:16 Dose: 0.5 mg Docusate Sodium (Colace) 100 mg PO BID [facility] Stop: 11/27/17 08:59 Last Admin: 09/30/17 16:55 Dose: Not Given Enoxaparin Sodium (Lovenox) 30 mg SUBQ DAILY [facility] Stop: 11/27/17 08:59 Last Admin: 09/30/17 09:16 Dose: 30 mg Famotidine (Pepcid) 20 mg PO DAILY [facility] Stop: 11/27/17 08:59 Last Admin: 09/30/17 09:16 Dose: 20 mg Gabapentin (Neurontin) 300 mg PO Q12H [facility] Stop: 11/26/17 19:29 Last Admin: 09/30/17 06:55 Dose: 300 mg Guaifenesin/Dextromethorphan (Robitussin Dm) 15 ml PO Q6H PRN PRN Reason: Cough Stop: 11/26/17 19:16 Ibuprofen (Motrin) 600 mg PO Q6HR PRN PRN Reason: Pain (Mild) Stop: 11/26/17 19:16 Last Admin: 09/30/17 14:24 Dose: 600 mg Insulin Aspart (Novolog Insulin Sliding Scale) 0 units SUBQ ACHS [facility] PRN Reason: Protocol Stop: 11/26/17 20:59 Last Admin: 09/30/17 17:22 Dose: Not Given Insulin Detemir (Levemir Insulin) 12 units SUBQ HS [facility] PRN Reason: Protocol Stop: 11/26/17 20:59 Last Admin: 09/29/17 20:52 Dose: 12 100 Magnesium Hydroxide (Milk Of Magnesia) 30 ml PO DAILY PRN PRN Reason: Constipation Stop: 11/26/17 19:16 Spironolactone (Aldactone) 50 mg PO DAILY [facility] Stop: 11/27/17 08:59 Last Admin: 09/30/17 09:16 Dose: 50 mg Temazepam (Restoril) 15 mg PO HS PRN; Protocol PRN Reason: Insomnia Stop: 11/26/17 19:16 Last Admin: 09/29/17 22:50 Dose: 15 mg Venlafaxine HCl (Effexor) 37.5 mg PO DAILY [facility] Stop: 11/28/17 08:59 Last Admin: 09/30/17 09:17 Dose: 37.5 mg General: alert HEENT: NC/AT, PERRLA, EOMI, anicteric sclerae, throat clear Lungs: CTAB Cardiovascular: RRR, Normal S1, Normal S2, without murmur Abdomen: non-tender, non-distended Extremities: clear Neurological: no change Internal Medicine Assmt/Plan - Assessment Assessment: 1.DM. 2.HTN. 3.CHF. 4.MAJOR DEPRESSION. - Plan Plan: CONTINUE ON CURRENT MEDICATION NAD DIET. Nutritional Asmnt/Malnutr-PDOC - Dietary Evaluation Malnutrition Findings (Please click <Entered> for more info): Nutritional Asmnt/Malnutrition Start: 09/28/17 10: 01 Text: Status: Complete Freq: Document 09/28/17 10:01 JANNY (Rec: 09/28/17 10:14 JANNY DESIR- FNS1) Nutritional Asmnt/Malnutrition Patient General Information Diagnosis psychosis Pertinent Medical Hx/Surgical Hx DM, CHF, severe anxiety disorder, chronic lumphedmia LE, depression Subjective Information Pt sitting up in rec room at time of visit Current Diet Order/ Nutrition Support CCHO 60g Pertinent Medications colace, pepcid, s/s insulin, MOM Pertinent Labs 09/27: Na 137, K 4.4, cl 104, CO2 24.4, BUN 14, Cr 0.9, Ca 9 .9, glucose 180 Nutritional Hx/Data Height 1.65 m Height (Calculated Centimeters) 165.1 Current Weight (lbs) 99.79 kg Weight (Calculated Kilograms) 99.8 Weight (Calculated Grams) 57626.3 Body Mass Index (BMI) 36.6 Weight Status Obese GI Symptoms GI Symptoms None Last BM none noted Cultural/Ethnic/Islam Belief none noted Usual diet at home CCHO Skin Integrity/Comment: boni score 17 Estimated Nutritional Goals BEE in Kcals: Adj wt of IBW Calories/Kcals/Kg 25-30kcals/kg Kcals Calculated 1763-2115kcals/day Protein: Adj wt of IBW Protein g/k-1.2g/kg Protein Calculated 71-85g/day Fluid: ml 1763-2115ml/day (1ml/kcal) Nutritional Problem 1. Problem Problem No nutrition diagnosis at this time. Intervention/Recommendation Comments Recommend continuing CCHO 60g diet Expected Outcomes/Goals Expected Outcomes/Goals PO intake >75%
--- NOTE | 2017-09-30 20:17 | Progress Notes ---
DATE: 09/30/2017 The patient in the hospital due to agitation, yelling, screaming, crying episodes; however, he is calmer on exam, more amenable to speaking with me today, states he is feeling better, calmer. He did not want to talk to me yesterday. Sleeping well, eating well. He is still nervous about going back to alf because of the roommate, but states that he will try to cope better. Medications were noted. Staff noting he has been calm and cooperative, no agitation, no escalation of behaviors. PLAN: We will continue to monitor, adjust and titrate medications. Work on the patient's coping. JOB# [id number]
[2017-09-30] MEDS: Insulin Detemir 100 units/mL 10mL Vial SUBQ SCH (20:58)
[2017-10-01] MEDS: INSULIN ASPART SLIDING SCALE 100 UNITS/ML UNIT SUBQ SCH ×4 (06:31→21:17)
[2017-10-01] MEDS: Enoxaparin 30 mg/0.3 mL 0.3mL Syr SUBQ SCH (09:06)
[2017-10-01] MEDS: Multivitamin w/ Minerals Tab PO SCH (09:07)
--- NOTE | 2017-10-01 16:42 | Progress Notes ---
DATE: 10/01/2017 SUBJECTIVE: The patient in the hospital due to agitation, yelling, and screaming behaviors. He has been significantly calmer, more cooperative, no agitation, friendly on exam, sleeping well, eating well, getting along well with staff and peers, taking his medications. We are trying to confirm placement at this time. The patient is eating well and sleeping well. ASSESSMENT: The patient remains somewhat impulsive, but calmer, more linear and engaged, friendly on exam, likely approaching his baseline. PLAN: We will continue to monitor. I will have manager rn case confirm placement for the patient. JOB# [id number]
[2017-10-01] MEDS: Insulin Detemir 100 units/mL 10mL Vial SUBQ SCH (21:28)
--- NOTE | 2017-10-01 23:19 | Internal Medicine Prog Note ---
Internal Medicine Subjective - Subjective Service Date: 10/01/17 Patient seen and examined:: without staff Patient is:: awake, verbal, in wheelchair, talking Per staff patient has:: no adverse event (HE FEELS WELL) Internal Medicine Objective - Results Result Diagrams: 09/27/17 15:37 09/27/17 15:37 Recent Labs: Laboratory Last Values WBC 6.3 Th/cmm (4.8-10.8) 09/27/17 15:37 RBC 4.62 Mil/cmm (4.30-5.70) 09/27/17 15:37 Hgb 14.9 gm/dL (12-16) 09/27/17 15:37 Hct 43.5 % (41.0-60) 09/27/17 15:37 MCV 94.0 fl (80-99) 09/27/17 15:37 MCH 32.2 pg (26.0-30.0) H 09/27/17 15:37 MCHC Differential 34.3 pg (28.0-36.0) 09/27/17 15:37 RDW 12.4 % (11.5-20.0) 09/27/17 15:37 Plt Count 262 Th/cmm (150-400) 09/27/17 15:37 MPV 6.9 fl 09/27/17 15:37 Neutrophils % 56.2 % (40.0-80.0) 09/27/17 15:37 Lymphocytes % 34.6 % (20.0-50.0) 09/27/17 15:37 Monocytes % 5.4 % (2.0-10.0) 09/27/17 15:37 Eosinophils % 3.0 % (0.0-5.0) 09/27/17 15:37 Basophils % 0.8 % (0.0-2.0) 09/27/17 15:37 Sodium 137 mEq/L (136-145) 09/27/17 15:37 Potassium 4.4 mEq/L (3.5-5.1) 09/27/17 15:37 Chloride 104 mEq/L (98-107) 09/27/17 15:37 Carbon Dioxide 24.4 mEq/L (21.0-31.0) 09/27/17 15:37 Anion Gap 13.0 (7.0-16.0) 09/27/17 15:37 BUN 14 mg/dL (7-25) 09/27/17 15:37 Creatinine 0.9 mg/dL (0.7-1.3) 09/27/17 15:37 Est GFR ( Amer) > 60.0 ml/min (>90) 09/27/17 15:37 Est GFR (Non-Af Amer) > 60.0 ml/min 09/27/17 15:37 BUN/Creatinine Ratio 15.6 09/27/17 15:37 Glucose 180 mg/dL (70-105) H 09/27/17 15:37 POC Glucose 109 MG/DL (70 - 105) H 10/01/17 21:12 Hemoglobin A1c % 7.0 % (4.0-6.0) H 09/27/17 15:37 Calcium 9.9 mg/dL (8.6-10.3) 09/27/17 15:37 Total Bilirubin 0.3 mg/dL (0.3-1.0) 09/27/17 15:37 AST 19 U/L (13-39) 09/27/17 15:37 ALT 21 U/L (7-52) 09/27/17 15:37 Alkaline Phosphatase 100 U/L (34-104) 09/27/17 15:37 Troponin I < 0.01 ng/mL (0.01-0.05) L 09/27/17 15:37 B-Natriuretic Peptide 17.4 pg/mL (5.0-100.0) 09/27/17 15:37 Total Protein 7.3 gm/dL (6.0-8.3) 09/27/17 15:37 Albumin 4.1 gm/dL (4.2-5.5) L 09/27/17 15:37 Globulin 3.2 gm/dL 09/27/17 15:37 Albumin/Globulin Ratio 1.3 (1.0-1.8) 09/27/17 15:37 TSH 1.46 uIU/ml (0.34-5.60) 09/27/17 15:37 Urine Source RANDOM 09/27/17 16:28 Urine Color YELLOW 09/27/17 16:28 Urine Clarity CLEAR (CLEAR) 09/27/17 16:28 Urine pH 7.0 (4.6 - 8.0) 09/27/17 16:28 Ur Specific [place] 1.010 (1.005-1.030) 09/27/17 16:28 Urine Protein NEGATIVE mg/dL (NEGATIVE) 09/27/17 16:28 Urine Glucose (UA) NEGATIVE mg/dL (NEGATIVE) 09/27/17 16:28 Urine Ketones NEGATIVE mg/dL (NEGATIVE) 09/27/17 16:28 Urine Blood NEGATIVE (NEGATIVE) 09/27/17 16:28 Urine Nitrate NEGATIVE (NEGATIVE) 09/27/17 16:28 Urine Bilirubin NEGATIVE (NEGATIVE) 09/27/17 16:28 Urine Urobilinogen 0.2 E.U./dL (0.2 - 1.0) 09/27/17 16:28 Ur Leukocyte Esterase NEGATIVE (NEGATIVE) 09/27/17 16:28 Urine RBC 0-2 /hpf (0-5) H 09/27/17 16:28 Urine WBC 0-2 /hpf (0-5) 09/27/17 16:28 Ur Epithelial Cells RARE /lpf (FEW) 09/27/17 16:28 Urine Bacteria NONE SEEN /hpf (NONE SEEN) 09/27/17 16:28 - Physical Exam Vitals and I&O: Vital Signs Temp 97.8 F 10/01/17 20:00 Pulse 83 10/01/17 21:15 Resp 20 10/01/17 20:00 BP 143/87 10/01/17 21:15 Pulse Ox 97 10/01/17 20:00 Intake & Output 10/01/17 10/01/17 10/02/17 06:59 18:59 06:59 Intake Total 300 Balance 300 Intake: Oral 300 Other: # Voids 2 # Bowel Movements 0 Active Medications: Current Medications Carvedilol (Coreg) 3.125 mg PO Q12HR [facility] Stop: 11/26/17 20:59 Last Admin: 10/01/17 21:15 Dose: 3.125 mg Clonazepam (Klonopin) 0.5 mg PO Q24H [facility] Stop: 11/27/17 09:44 Last Admin: 10/01/17 09:07 Dose: 0.5 mg Docusate Sodium (Colace) 100 mg PO BID [facility] Stop: 11/27/17 08:59 Last Admin: 10/01/17 16:47 Dose: 100 mg Enoxaparin Sodium (Lovenox) 30 mg SUBQ DAILY [facility] Stop: 11/27/17 08:59 Last Admin: 10/01/17 09:06 Dose: 30 mg Famotidine (Pepcid) 20 mg PO DAILY [facility] Stop: 11/27/17 08:59 Last Admin: 10/01/17 09:07 Dose: 20 mg Gabapentin (Neurontin) 300 mg PO Q12H [facility] Stop: 11/30/17 20:59 Last Admin: 10/01/17 21:15 Dose: 300 mg Guaifenesin/Dextromethorphan (Robitussin Dm) 15 ml PO Q6H PRN PRN Reason: Cough Stop: 11/26/17 19:16 Ibuprofen (Motrin) 600 mg PO Q6HR PRN PRN Reason: Pain (Mild) Stop: 11/26/17 19:16 Last Admin: 09/30/17 14:24 Dose: 600 mg Insulin Aspart (Novolog Insulin Sliding Scale) 0 units SUBQ ACHS [facility] PRN Reason: Protocol Stop: 11/26/17 20:59 Last Admin: 10/01/17 21:17 Dose: Not Given Insulin Detemir (Levemir Insulin) 12 units SUBQ HS [place] PRN Reason: Protocol Stop: 11/26/17 20:59 Last Admin: 10/01/17 21:28 Dose: 12 units Magnesium Hydroxide (Milk Of Magnesia) 30 ml PO DAILY PRN PRN Reason: Constipation Stop: 11/26/17 19:16 Last Admin: 10/01/17 14:53 Dose: 30 ml Spironolactone (Aldactone) 50 mg PO DAILY [facility] Stop: 11/27/17 08:59 Last Admin: 10/01/17 09:08 Dose: Not Given Temazepam (Restoril) 15 mg PO HS PRN; Protocol PRN Reason: Insomnia Stop: 11/26/17 19:16 Last Admin: 10/01/17 21:15 Dose: 15 mg Venlafaxine HCl (Effexor) 37.5 mg PO DAILY [facility] Stop: 11/28/17 08:59 Last Admin: 10/01/17 09:07 Dose: 37.5 mg General: alert HEENT: NC/AT, PERRLA, EOMI, anicteric sclerae, throat clear Lungs: CTAB Cardiovascular: RRR, Normal S1, Normal S2, without murmur Abdomen: non-tender, non-distended Extremities: clear Neurological: no change Internal Medicine Assmt/Plan - Assessment Assessment: 1.DM. 2.HTN. 3.CHF. 4.MAJOR DEPRESSION. - Plan Plan: CONTINUE ON CURRENT MEDICATION NAD DIET. Nutritional Asmnt/Malnutr-PDOC - Dietary Evaluation Malnutrition Findings (Please click <Entered> for more info): Nutritional Asmnt/Malnutrition Start: 09/28/17 10: 01 Text: Status: Complete Freq: Document 09/28/17 10:01 JANNY (Rec: 09/28/17 10:14 JANNY DESIR- [email or web address]) Nutritional Asmnt/Malnutrition Patient General Information Diagnosis psychosis Pertinent Medical Hx/Surgical Hx DM, CHF, severe anxiety disorder, chronic lumphedmia LE, depression Subjective Information Pt sitting up in rec room at time of visit Current Diet Order/ Nutrition Support CCHO 60g Pertinent Medications colace, pepcid, s/s insulin, MOM Pertinent Labs 09/27: Na 137, K 4.4, cl 104, CO2 24.4, BUN 14, Cr 0.9, Ca 9 .9, glucose 180 Nutritional Hx/Data Height 1.65 m Height (Calculated Centimeters) 165.1 Current Weight (lbs) 99.79 kg Weight (Calculated Kilograms) 99.8 Weight (Calculated Grams) 72439.3 Body Mass Index (BMI) 36.6 Weight Status Obese GI Symptoms GI Symptoms None Last BM none noted Cultural/Ethnic/L[employer]an Belief none noted Usual diet at home CCHO Skin Integrity/Comment: boni score 17 Estimated Nutritional Goals BEE in Kcals: Adj wt of IBW Calories/Kcals/Kg 25-30kcals/kg Kcals Calculated 1763-2115kcals/day Protein: Adj wt of IBW Protein g/k-1.2g/kg Protein Calculated 71-85g/day Fluid: ml 1763-2115ml/day (1ml/kcal) Nutritional Problem 1. Problem Problem No nutrition diagnosis at this time. Intervention/Recommendation Comments Recommend continuing CCHO 60g diet Expected Outcomes/Goals Expected Outcomes/Goals PO intake >75%
[2017-10-02] MEDS: INSULIN ASPART SLIDING SCALE 100 UNITS/ML UNIT SUBQ SCH ×2 (06:48→11:48)
--- NOTE | 2017-10-02 06:54 | Discharge Summary ---
DATE OF DISCHARGE: JUSTIFICATION FOR HOSPITALIZATION: The patient came to the hospital, crying, agitated, yelling, screaming, having hard time with roommate. HISTORY OF PRESENT ILLNESS: A 62-year-old male brought in from intermediate depressed, agitated, very upset with roommate, argument with roommate, yelling and screaming episodes, stating that he was feeling more depressed and hopeless due to the attention with roommate. PAST PSYCHIATRIC HISTORY: Denied. ALLERGIES: Noted. SOCIAL HISTORY: Noted. MENTAL STATUS EXAMINATION: Please see full psych eval for details. PROVISIONAL DIAGNOSES: Major depression, unspecified. Also, anxiety, unspecified. Under medical, please see full H and P. HOSPITAL COURSE: After initial assessment, the patient was admitted to the hospital. Medications were adjusted and titrated as needed, although no overt changes were made in his medication regimen in regards to the Effexor because the patient seemed to quickly improve. It seems that the major issue was tension with a roommate and once he was no longer with roommate. His symptoms seem to dissipate. He was sleeping well, eating well, friendly, calm and cooperative. Staff noting improvement, toward the latter end of his hospitalization, he was asymptomatic and discharged. CONDITION UPON DISCHARGE: Improved, better ADLs, good eye contact, speech within normal limits. Mood "better." Affect brighter broader. Thought processes were linear. No SI, no HI, no intent, no plan. No psychotic symptoms. Insight improved, better understanding of the disease process, wants to work things out at [facility] and has the idea of trying to switch rooms and go with another roommate. The patient is hopeful. DISCHARGE DIAGNOSES: Major depression, unspecified; anxiety, unspecified. Under medical, please see full H and P. PROGNOSIS: The patient follows up with outpatient mental services and potentially finds another roommate or has a room changed at [facility]. Prognosis may improve, otherwise guarded. JOB# [id number]
[2017-10-02] MEDS: Enoxaparin 30 mg/0.3 mL 0.3mL Syr SUBQ SCH (09:00)
[2017-10-02] MEDS: Multivitamin w/ Minerals Tab PO SCH (09:10)
== END 2017-10-02 14:15 | DRG 885 ==
LOC: ER 14:56 → GERO 17:30
PROVIDERS: ADMIT Psychiatry & Neurology Psychiatry; ATTEND Psychiatry & Neurology Psychiatry
DX: F33.9 Major depressive disorder, recurrent, unspecified (principal); I11.0 Hypertensive heart disease with heart failure; F41.9 Anxiety disorder, unspecified; I50.9 Heart failure, unspecified; I89.0 Lymphedema, not elsewhere classified; G89.4 Chronic pain syndrome; F17.210 Nicotine dependence, cigarettes, uncomplicated; E11.51 Type 2 diabetes mellitus with diabetic peripheral angiopathy without gangrene; Z99.3 Dependence on wheelchair; Z83.3 Family history of diabetes mellitus; Z82.49 Family history of ischemic heart disease and other diseases of the circulatory system
CPT/HCPCS: 36415-UA; 71045-TC; 80053-TC; 81001-TC; 82948-90; 83036-90; 83880-TC; 84443-TC; 84484-TC; 85025-TC; 90899; 93005; G0410; J1650; J1815; Z7610